=== PATIENT | male | born 1980 | race Caucasian/White ===

== ENCOUNTER 2017-06-21 16:23 | Emergency (ER) | payer OTHER ==
[~2017-06-21] VITALS: Ht 172.7 cm; Wt 70.0 kg
--- NOTE | 2017-06-21 16:58 | PD ---
HPI Chief Complaint: lora act Time Seen by Provider: 16:48 Travel History International Travel<30 days: No Contact w/Intl Traveler<30days: No Traveled to known affect area: No History of Present Illness HPI 37-year-old male is brought to the emergency department under a Nguyen act for evaluation. Patient reports he has been doing her when today. Per the report, the patient was lying down in the mulch, eating it. Patient states he does not recall this. Denies this was any attempt to harm himself. Uses here when daily. Occasionally crack cocaine. She denies chest pain or tightness. No difficulty breathing. Patient denies any other acute medical needs at this time. [facility] Past Medical History Medical History: Denies Significant Hx Social History Alcohol Use: Yes Tobacco Use: Yes Substance Use: Yes Allergies-Medications (Allergen,Severity, Reaction): Coded Allergies: No Known Allergies (Unverified , 06/21/17) Reported Meds & Prescriptions Reported Meds & Active Scripts Active No Active Prescriptions or Reported Medications Review of Systems ROS Limitations: Intoxication Except as stated in HPI: all other systems reviewed are Neg Physical Exam Exam Limitations: Intoxication Narrative GENERAL: Thin male patient, in no acute distress. Patient is lethargic, arousable to voice SKIN: Focused skin assessment warm/dry. Full scabbed lesions on the upper extremities. EYES: Pupils equal and round. No scleral icterus. No injection or drainage. ENT: No nasal bleeding or discharge. Mucous membranes pink and moist. NECK: Trachea midline. No JVD. CARDIOVASCULAR: Tachycardic rate and rhythm. No murmur appreciated. RESPIRATORY: No accessory muscle use. Clear to auscultation. Breath sounds equal bilaterally. GASTROINTESTINAL: Abdomen soft, non-tender, nondistended. Hepatic and splenic margins not palpable. MUSCULOSKELETAL: No obvious deformities. No clubbing. No cyanosis. No edema. NEUROLOGICAL: Awake and alert. No obvious cranial nerve deficits. Motor grossly within normal limits. Normal speech. PSYCHIATRIC: Appropriate mood and affect; insight and judgment questionable Data Data Last Documented VS Vital Signs Date Time Temp Pulse Resp B/P (MAP) Pulse Ox O2 Delivery O2 Flow Rate FiO2 06/21/17 19:25 84 17 115/84 (94) 98 Room Air 06/21/17 17:43 2.00 06/21/17 17:12 98.6 Orders Orders Complete Blood Count With Diff (06/21/17 16:58) Basic Metabolic Panel (Bmp) (06/21/17 16:58) Oximetry (06/21/17 16:58) Iv Access Insert/Monitor (06/21/17 16:58) Ecg Monitoring (06/21/17 16:58) Drug Screen, Random Urine (06/21/17 16:58) Alcohol (Ethanol) (06/21/17 16:58) Sodium Chlor 0.9% 1000 Ml Inj (Ns 1000 M (06/21/17 17:00) Sodium Chlor 0.9% 1000 Ml Inj (Ns 1000 M (06/21/17 19:30) Cath For Specimen (06/21/17 19:27) Labs Laboratory Tests Test 06/21/17 17:40 White Blood Count 15.7 TH/MM3 Red Blood Count 5.29 MIL/MM3 Hemoglobin 15.5 GM/DL Hematocrit 45.5 % Mean Corpuscular Volume 86.0 FL Mean Corpuscular Hemoglobin 29.4 PG Mean Corpuscular Hemoglobin Concent 34.2 % Red Cell Distribution Width 13.8 % Platelet Count 290 TH/MM3 Mean Platelet Volume 6.2 FL Neutrophils (%) (Auto) 79.6 % Lymphocytes (%) (Auto) 11.8 % Monocytes (%) (Auto) 8.1 % Eosinophils (%) (Auto) 0.3 % Basophils (%) (Auto) 0.2 % Neutrophils # (Auto) 12.5 TH/MM3 Lymphocytes # (Auto) 1.9 TH/MM3 Monocytes # (Auto) 1.3 TH/MM3 Eosinophils # (Auto) 0.0 TH/MM3 Basophils # (Auto) 0.0 TH/MM3 CBC Comment AUTO DIFF Differential Comment AUTO DIFF CONFIRMED Platelet Estimate NORMAL Platelet Morphology Comment NORMAL Red Cell Morphology Comment NORMAL Blood Urea Nitrogen 15 MG/DL Creatinine 1.20 MG/DL Random Glucose 112 MG/DL Calcium Level 8.2 MG/DL Sodium Level 139 MEQ/L Potassium Level 4.3 MEQ/L Chloride Level 106 MEQ/L Carbon Dioxide Level 26.5 MEQ/L Anion Gap 7 MEQ/L Estimat Glomerular Filtration Rate 68 ML/MIN Ethyl Alcohol Level LESS THAN 3 MG/DL MDM Medical Decision Making Medical Screen Exam Complete: Yes Emergency Medical Condition: Yes Medical Record Reviewed: Yes Differential Diagnosis Opiate dependency versus opiate overdose versus polysubstance abuse versus mood disorder versus personality disorder Narrative Course 37-year-old male presents to emergency department for evaluation under a psych. Patient appears under the influence. He is lethargic but arousable to voice. He is tachycardic. EKG is reviewed to my attending physician with no acute abnormality identified. Laboratory Tests Test 06/21/17 17:40 White Blood Count 15.7 TH/MM3 Red Blood Count 5.29 MIL/MM3 Hemoglobin 15.5 GM/DL Hematocrit 45.5 % Mean Corpuscular Volume 86.0 FL Mean Corpuscular Hemoglobin 29.4 PG Mean Corpuscular Hemoglobin Concent 34.2 % Red Cell Distribution Width 13.8 % Platelet Count 290 TH/MM3 Mean Platelet Volume 6.2 FL Neutrophils (%) (Auto) 79.6 % Lymphocytes (%) (Auto) 11.8 % Monocytes (%) (Auto) 8.1 % Eosinophils (%) (Auto) 0.3 % Basophils (%) (Auto) 0.2 % Neutrophils # (Auto) 12.5 TH/MM3 Lymphocytes # (Auto) 1.9 TH/MM3 Monocytes # (Auto) 1.3 TH/MM3 Eosinophils # (Auto) 0.0 TH/MM3 Basophils # (Auto) 0.0 TH/MM3 CBC Comment AUTO DIFF Differential Comment AUTO DIFF CONFIRMED Platelet Estimate NORMAL Platelet Morphology Comment NORMAL Red Cell Morphology Comment NORMAL Blood Urea Nitrogen 15 MG/DL Creatinine 1.20 MG/DL Random Glucose 112 MG/DL Calcium Level 8.2 MG/DL Sodium Level 139 MEQ/L Potassium Level 4.3 MEQ/L Chloride Level 106 MEQ/L Carbon Dioxide Level 26.5 MEQ/L Anion Gap 7 MEQ/L Estimat Glomerular Filtration Rate 68 ML/MIN Ethyl Alcohol Level LESS THAN 3 MG/DL Patient's given IV normal saline fluid. He'll be observed and monitored for the next 4 hours at which time he'll be discharged home with a safe ride. Diagnosis Primary Impression: Opiate abuse, continuous Referrals: [facility] (Out patient) Primary Care Physician Patient Instructions: General Instructions, Narcotic Abuse (ED) Additional Instructions: It is important that you stop using heroin Utilize outpatient resources or inpatient rehabilitation to help with this Follow-up with primary care provider Return immediately to the emergency department with any acute worsening of symptoms Med/Other Pt SpecificInfo: No Change to Meds Scripts No Active Prescriptions or Reported Meds Disposition: 01 DISCHARGE HOME Condition: Stable Tasneem Griffith Jun 21, 2017 16:58
[2017-06-21] MEDS ORDERED: SODIUM CHLOR 0.9% 1000 ML INJ 1,000 ML IV ONE ×2 (17:00→19:30)
[2017-06-21 17:12] VITALS: BP 122/82; PULSE 104; RESP 18; TEMP 98.6; O2SAT 98
[2017-06-21 17:43] VITALS: RESP 16; O2SAT 99
[2017-06-21 17:57] LABS: AUTOMATED NEUTROPHIL # 12.5 TH/MM3 (1.8-7.7); BASOPHIL % 0.2 % (0.0-2.0); EOSINOPHIL % 0.3 % (0.0-4.0); HEMATOCRIT 45.5 % (39.0-51.0); LYMPH % 11.8 % (9.0-44.0); LYMPHOCYTE # 1.9 TH/MM3 (1.0-4.8); MEAN CORPUSCULAR HEMOGLOBIN 29.4 PG (27.0-34.0); MEAN CORPUSCULAR HGB CONC 34.2 % (32.0-36.0); MONO % 8.1 % (0.0-8.0); NEUT % 79.6 % (16.0-70.0); PLATELET COUNT 290 TH/MM3 (150-450); RED BLOOD COUNT 5.29 MIL/MM3 (4.50-5.90); RED CELL DISTRIBUTION WIDTH 13.8 % (11.6-17.2); WHITE BLOOD COUNT 15.7 TH/MM3 (4.0-11.0)
[2017-06-21 17:59] LABS: HEMO FLAGS AUTO DIFF
[2017-06-21 18:07] LABS: ANION GAP 7 MEQ/L (5-15); BICARBONATE 26.5 MEQ/L (21.0-32.0); BLOOD UREA NITROGEN 15 MG/DL (7-18); CHLORIDE 106 MEQ/L (98-107); GLOMERULAR FILTRATION RATE 68 ML/MIN (>89); POTASSIUM 4.3 MEQ/L (3.5-5.1); SODIUM (NA) 139 MEQ/L (136-145)
[2017-06-21 18:19] LABS: ALCOHOL LESS THAN 3 MG/DL (0-5)
[2017-06-21 18:45] LABS: PLATELET ESTIMATE SMEAR NORMAL (NORMAL); PLATELET MORPHOLOGY NORMAL (NORMAL); SCAN/DIFF AUTO DIFF CONFIRMED
[2017-06-21 19:25] VITALS: BP 115/84; PULSE 84; RESP 17; O2SAT 98
== END 2017-06-21 21:05 | disposition home or self-care (01) ==
LOC: NEPD 16:23
DX: F11.10 Opioid abuse, uncomplicated (principal)
CPT/HCPCS: 80048; 80307; 85025; 96360; 99283; J7030; P9612

== ENCOUNTER 2017-12-09 16:16 | Inpatient (IN) | payer SELFPAY ==
[~2017-12-09] VITALS: Ht 175.3 cm; Wt 59.3 kg
[2017-12-09 16:24] VITALS: BP 125/76; PULSE 120; RESP 16; TEMP 97.9; O2SAT 97
[2017-12-09] MEDS ORDERED: SODIUM CHLOR 0.9% 1000 ML INJ 1,000 ML IV ONE ×2 (16:36→17:06)
[2017-12-09] MEDS ORDERED: VIVI380I IM (16:58)
--- NOTE | 2017-12-09 16:58 | PD ---
HPI Chief Complaint: Abnormal Results Time Seen by Provider: 16:27 Travel History International Travel<30 days: No Contact w/Intl Traveler<30days: No Traveled to known affect area: No History of Present Illness HPI This is a 37-year-old male who presents for elevated glucose. He states that in November, he injured his right shoulder. He saw an orthopedic surgeon who did a cortisone injection into his right shoulder and started him on prednisone. He states that he started prednisone November 19. He stopped it about 8 days ago. He states that his shoulder feels better now. He has had polyuria polydipsia, general fatigue and blurred vision for the last few weeks. He saw an general machine operator who evaluated him and referred him for blood work. The blood work showed markedly elevated glucose so he was referred to the emergency department. Patient denies a history of diabetes. He denies fever, chills, vomiting, diarrhea. No chest pain or shortness of breath. He does note an area of skin infection on the anterior chest. No drainage from it. He states that he last injected IV drugs 45 days ago. He had been in a rehab center until 4 days ago. Symptoms are moderate in severity. Onset gradual. Hyperglycemia likely aggravated by prednisone. PFSH Past Medical History Narrative Medical Hepatitis C, history of right AC separation Past Surgical History Surgical History: No Previous Surgery Social History Alcohol Use: No Tobacco Use: Yes Substance Use: No ("Clean" for 45 days, prior IVDA) Allergies-Medications (Allergen,Severity, Reaction): Coded Allergies: No Known Allergies (Unverified Allergy, Unknown, 12/09/17) Reported Meds & Prescriptions Reported Meds & Active Scripts Active Reported Vivitrol Inj (Naltrexone Inj) 380 Mg Inj 380 Mg IM Q28D Review of Systems Except as stated in HPI: all other systems reviewed are Neg Physical Exam Narrative GENERAL: Alert, well nourished, well appearing patient resting on the bed in no acute distress. Vital Signs reviewed SKIN: Focused skin assessment warm/dry. No Osler nodes. No Janeway lesions. There is an area of erythema and induration on the upper mid chest wall. No drainage. HEAD: Atraumatic. Normocephalic. EYES: Pupils equal and round. No scleral icterus. No injection or drainage. ENT: No nasal bleeding or discharge. Mucous membranes pink and moist. NECK: Trachea midline. No JVD. Spontaneous, painless full range of motion with no meningismus CARDIOVASCULAR: Regular rate and rhythm. No murmur appreciated. Extremities warm and well perfused with bounding peripheral pulses RESPIRATORY: No accessory muscle use. Clear to auscultation. Breath sounds equal bilaterally. Breathing easily and speaking in full sentences GASTROINTESTINAL: Abdomen soft, non-tender, nondistended. Normal bowel sounds. No rigid, rebound, guarding MUSCULOSKELETAL: No obvious deformities. No clubbing. No cyanosis. No edema. Compartments are soft. Painless full range of motion of right shoulder, elbow, wrist. No overlying erythema or increased warmth on right shoulder. NEUROLOGICAL: Awake and alert. No obvious cranial nerve deficits. Motor grossly within normal limits. Normal speech. Sensation intact. Normal gait PSYCHIATRIC: Appropriate mood and affect; insight and judgment normal. Data Data Last Documented VS Vital Signs Date Time Temp Pulse Resp B/P (MAP) Pulse Ox O2 Delivery O2 Flow Rate FiO2 12/09/17 17:17 97 Room Air 12/09/17 16:24 97.9 120 16 125/76 (92) Orders Orders Sepsis Workup Initiated (12/09/17 ) Complete Blood Count With Diff (12/09/17 16:36) Comprehensive Metabolic Panel (12/09/17 16:36) Lactic Acid Sepsis Protocol (12/09/17 16:36) Magnesium (Mg) (12/09/17 16:36) Ckmb (Isoenzyme) Profile (12/09/17 16:36) Troponin I (12/09/17 16:36) Urinalysis - C+S If Indicated (12/09/17 16:36) Blood Culture (12/09/17 16:36) Chest, Pa & Lat (12/09/17 16:36) Ecg Monitoring (12/09/17 16:36) Iv Access Insert/Monitor (12/09/17 16:36) Oximetry (12/09/17 16:36) Beta Hydroxybutyrate (Acetone) (12/09/17 16:36) Blood Gas Venous (Vbg) (12/09/17 16:36) Sodium Chlor 0.9% 1000 Ml Inj (Ns 1000 M (12/09/17 16:36) Sodium Chlor 0.9% 1000 Ml Inj (Ns 1000 M (12/09/17 17:06) CKMB (12/09/17 17:09) CKMB% (12/09/17 17:09) Ceftriaxone Inj (Rocephin Inj) (12/09/17 18:30) Vancomycin Inj (Vancomycin Inj) (12/09/17 18:30) Notify Dr: Other (12/09/17 18:36) Bedside Glucose .As Directed (12/09/17 18:36) Hypoglycemia Cc <80 Mg/Dl (12/09/17 18:36) Insulin Regular (Iv Infusion) (Novolin R (12/09/17 19:00) Dextrose 50% In Roselyn (Vial) Inj (D50w (Vi (12/09/17 18:45) Misc Information (12/09/17 18:45) Admit To Inpatient (12/09/17 ) Spinning Mule Tender / Telemetry CEDRIC.Q8H (12/09/17 18:50) ^ Insert Iv (12/09/17 18:50) ^ Teach Patient (12/09/17 18:50) Diet Npo (12/09/17 Dinner) Bedside Glucose CEDRIC.Q1H (12/09/17 18:50) Sodium Chlor 0.9% 1000 Ml Inj (Ns 1000 M (12/09/17 18:50) Dext 5%-Nacl 0.9% 1000 Ml Inj (D5w-Ns 10 (12/09/17 18:50) Insulin Human Regular Inj (Novolin R Inj (12/09/17 19:00) Insulin Regular (Iv Infusion) (Novolin R (12/09/17 19:00) Potassium Chlor 40 Meq Premix (Kcl 40 Me (12/09/17 19:00) Potassium Chlor 40 Meq Premix (Kcl 40 Me (12/09/17 19:00) Potassium Chlor 20 Meq Premix (Kcl 20 Me (12/09/17 19:00) Potassium Chlor 20 Meq Premix (Kcl 20 Me (12/09/17 19:00) Potassium Chlor 20 Meq Premix (Kcl 20 Me (12/09/17 19:00) Potassium Chlor 20 Meq Premix (Kcl 20 Me (12/09/17 19:00) Potassium Chlor 20 Meq Premix (Kcl 20 Me (12/09/17 19:00) Potassium Chlor 20 Meq Premix (Kcl 20 Me (12/09/17 19:00) Sodium Bicarbonate 8.4% Inj (Sodium Bica (12/09/17 19:00) Sodium Bicarbonate 8.4% Inj (Sodium Bica (12/09/17 19:00) Sodium Phosphate Inj (Sodium Phosphate I (12/09/17 19:00) Basic Metabolic Panel (Bmp) (12/09/17 23:50) Basic Metabolic Panel (Bmp) (12/10/17 05:50) Basic Metabolic Panel (Bmp) (12/10/17 11:50) Basic Metabolic Panel (Bmp) (12/10/17 17:50) Magnesium (Mg) (12/09/17 23:50) Magnesium (Mg) (12/10/17 05:50) Magnesium (Mg) (12/10/17 11:50) Magnesium (Mg) (12/10/17 17:50) Phosphorus (Po4) (12/09/17 23:50) Phosphorus (Po4) (12/10/17 05:50) Phosphorus (Po4) (12/10/17 11:50) Phosphorus (Po4) (12/10/17 17:50) Beta Hydroxybutyrate (Acetone) (12/10/17 05:50) Beta Hydroxybutyrate (Acetone) (12/10/17 17:50) ^ Initiate Protocol (12/09/17 18:50) Instruction (12/09/17 18:50) [facility] [place] [facility] (12/09/17 19:00) Chlorhexidine 2% Cloth (Chlorhexidine 2% (12/10/17 04:00) Chlorhexidine 2% Cloth (Chlorhexidine 2% (12/09/17 19:00) Mrsa Pcr Surveillance (12/09/17 18:50) Admit Order (Ed Use Only) (12/09/17 19:00) Labs Laboratory Tests Test 12/09/17 17:05 12/09/17 17:09 Blood Gas Puncture Site RAC Blood Gas Patient Temperature 98.6 Venous Blood pH 7.38 Venous Blood Partial Pressure CO2 44 mmHg Venous Blood Partial Pressure O2 46 mmHg Venous Blood HCO3 25 mmol/L Venous Blood Oxygen Saturation 77 % Venous Blood Oxygen Content 16.3 Vol % Venous Blood Base Excess 0.8 mmol/L Oxygen Delivery Device RA Blood Gas Inspired Oxygen 21 % White Blood Count 11.6 TH/MM3 Red Blood Count 5.41 MIL/MM3 Hemoglobin 15.1 GM/DL Hematocrit 45.1 % Mean Corpuscular Volume 83.3 FL Mean Corpuscular Hemoglobin 27.8 PG Mean Corpuscular Hemoglobin Concent 33.4 % Red Cell Distribution Width 12.2 % Platelet Count 411 TH/MM3 Mean Platelet Volume 6.9 FL Neutrophils (%) (Auto) 71.1 % Lymphocytes (%) (Auto) 22.7 % Monocytes (%) (Auto) 4.8 % Eosinophils (%) (Auto) 0.7 % Basophils (%) (Auto) 0.7 % Neutrophils # (Auto) 8.2 TH/MM3 Lymphocytes # (Auto) 2.6 TH/MM3 Monocytes # (Auto) 0.6 TH/MM3 Eosinophils # (Auto) 0.1 TH/MM3 Basophils # (Auto) 0.1 TH/MM3 CBC Comment DIFF FINAL Differential Comment Blood Urea Nitrogen 16 MG/DL Creatinine 1.10 MG/DL Random Glucose 556 MG/DL Total Protein 9.2 GM/DL Albumin 3.7 GM/DL Calcium Level 9.2 MG/DL Magnesium Level 2.1 MG/DL Alkaline Phosphatase 198 U/L Aspartate Amino Transf (AST/SGOT) 31 U/L Alanine Aminotransferase (ALT/SGPT) 50 U/L Total Bilirubin 0.4 MG/DL Sodium Level 130 MEQ/L Potassium Level 4.5 MEQ/L Chloride Level 94 MEQ/L Carbon Dioxide Level 21.5 MEQ/L Anion Gap 15 MEQ/L Estimat Glomerular Filtration Rate 75 ML/MIN Lactic Acid Level 1.4 mmol/L Total Creatine Kinase 163 U/L Creatine Kinase MB 1.8 NG/ML Troponin I LESS THAN 0.02 NG/ML B-Hydroxybutyrate 3.52 MMOL/L MDM Medical Decision Making Medical Screen Exam Complete: Yes Emergency Medical Condition: Yes Medical Record Reviewed: Yes Interpretation(s) Last 24 hours Impressions Chest X-Ray 12/09/17 1636 Signed Impressions: Service Date/Time: Saturday, December 09, 2017 16:47 - CONCLUSION: Normal examination. Edu Pacheco MD Laboratory Tests Test 12/09/17 17:05 12/09/17 17:09 Blood Gas Puncture Site RAC Blood Gas Patient Temperature 98.6 Venous Blood pH 7.38 Venous Blood Partial Pressure CO2 44 mmHg Venous Blood Partial Pressure O2 46 mmHg Venous Blood HCO3 25 mmol/L Venous Blood Oxygen Saturation 77 % Venous Blood Oxygen Content 16.3 Vol % Venous Blood Base Excess 0.8 mmol/L Oxygen Delivery Device RA Blood Gas Inspired Oxygen 21 % White Blood Count 11.6 TH/MM3 Red Blood Count 5.41 MIL/MM3 Hemoglobin 15.1 GM/DL Hematocrit 45.1 % Mean Corpuscular Volume 83.3 FL Mean Corpuscular Hemoglobin 27.8 PG Mean Corpuscular Hemoglobin Concent 33.4 % Red Cell Distribution Width 12.2 % Platelet Count 411 TH/MM3 Mean Platelet Volume 6.9 FL Neutrophils (%) (Auto) 71.1 % Lymphocytes (%) (Auto) 22.7 % Monocytes (%) (Auto) 4.8 % Eosinophils (%) (Auto) 0.7 % Basophils (%) (Auto) 0.7 % Neutrophils # (Auto) 8.2 TH/MM3 Lymphocytes # (Auto) 2.6 TH/MM3 Monocytes # (Auto) 0.6 TH/MM3 Eosinophils # (Auto) 0.1 TH/MM3 Basophils # (Auto) 0.1 TH/MM3 CBC Comment DIFF FINAL Differential Comment Blood Urea Nitrogen 16 MG/DL Creatinine 1.10 MG/DL Random Glucose 556 MG/DL Total Protein 9.2 GM/DL Albumin 3.7 GM/DL Calcium Level 9.2 MG/DL Magnesium Level 2.1 MG/DL Alkaline Phosphatase 198 U/L Aspartate Amino Transf (AST/SGOT) 31 U/L Alanine Aminotransferase (ALT/SGPT) 50 U/L Total Bilirubin 0.4 MG/DL Sodium Level 130 MEQ/L Potassium Level 4.5 MEQ/L Chloride Level 94 MEQ/L Carbon Dioxide Level 21.5 MEQ/L Anion Gap 15 MEQ/L Estimat Glomerular Filtration Rate 75 ML/MIN Lactic Acid Level 1.4 mmol/L Total Creatine Kinase 163 U/L Creatine Kinase MB 1.8 NG/ML Troponin I LESS THAN 0.02 NG/ML B-Hydroxybutyrate 3.52 MMOL/L Differential Diagnosis Cellulitis, hyperglycemia, dehydration, HHS, DKA, new onset diabetes, medication reaction, sepsis, endocarditis Narrative Course IV access was established. Labs, imaging were performed. He was given broad- spectrum IV antibiotics for the cellulitis. Patient was given 2 L normal saline bolus. Initially, plan was for insulin drip. After the 2 L normal saline IV fluid bolus, the patient's glucose came down to the low 300s therefore insulin drip was canceled and patient was given a bolus of regular insulin. I updated the admitting physician, Dr. English. She requested that I canceled the DKA orders. Patient will no longer need ICU level of care. He remains awake, alert, appropriate. He is drinking fluids without difficulty. Diagnosis Primary Impression: Hyperglycemia Additional Impression: Dehydration Admitting Information Admitting Physician Requests: Admit Selam Pisano MD Dec 09, 2017 16:58
[2017-12-09 17:17] VITALS: O2SAT 97
--- NOTE | 2017-12-09 17:20 | RADRPT ---
EXAM DATE/TIME: 12/09/2017 16:47 [facility] COMPARISON: No previous studies available for comparison. INDICATIONS : Short of breath. MEDICAL HISTORY : None. SURGICAL HISTORY : None. ENCOUNTER: Initial ACUITY: 1 day PAIN SCORE: 0/10 LOCATION: Bilateral chest FINDINGS: PA and lateral views of the chest demonstrate the lungs to be symmetrically aerated without evidence of mass, infiltrate or effusion. The cardiomediastinal contours are unremarkable. Osseous structure s are intact. CONCLUSION: Normal examination. Edu Pacheco MD on December 09, 2017 at 17:16 Board Certified Radiologist. This report was verified electronically.
[2017-12-09 17:30] LABS: AUTOMATED NEUTROPHIL # 8.2 TH/MM3 (1.8-7.7); BASOPHIL # 0.1 TH/MM3 (0-0.2); BASOPHIL % 0.7 % (0.0-2.0); EOSINOPHIL # 0.1 TH/MM3 (0-0.4); EOSINOPHIL % 0.7 % (0.0-4.0); HEMATOCRIT 45.1 % (39.0-51.0); HEMOGLOBIN 15.1 GM/DL (13.0-17.0); LYMPH % 22.7 % (9.0-44.0); LYMPHOCYTE # 2.6 TH/MM3 (1.0-4.8); MEAN CELL VOLUME 83.3 FL (80.0-100.0); MEAN CORPUSCULAR HEMOGLOBIN 27.8 PG (27.0-34.0); MEAN CORPUSCULAR HGB CONC 33.4 % (32.0-36.0); MEAN PLATELET VOLUME 6.9 FL (7.0-11.0); MONO % 4.8 % (0.0-8.0); MONOCYTE # 0.6 TH/MM3 (0-0.9); NEUT % 71.1 % (16.0-70.0); PLATELET COUNT 411 TH/MM3 (150-450); RED BLOOD COUNT 5.41 MIL/MM3 (4.50-5.90); RED CELL DISTRIBUTION WIDTH 12.2 % (11.6-17.2); WHITE BLOOD COUNT 11.6 TH/MM3 (4.0-11.0)
[2017-12-09 17:41] LABS: CHLORIDE 94 MEQ/L (98-107); SODIUM (NA) 130 MEQ/L (136-145)
[2017-12-09 17:44] LABS: CALCIUM 9.2 MG/DL (8.5-10.1)
[2017-12-09 17:45] LABS: ALBUMIN 3.7 GM/DL (3.4-5.0); BICARBONATE 21.5 MEQ/L (21.0-32.0); BLOOD UREA NITROGEN 16 MG/DL (7-18); MAGNESIUM 2.1 MG/DL (1.5-2.5)
[2017-12-09 17:48] LABS: ALT (GPT) 50 U/L (12-78); AST (GOT) 31 U/L (15-37); GLOMERULAR FILTRATION RATE 75 ML/MIN (>89)
[2017-12-09 17:49] LABS: TOTAL BILIRUBIN ADULT 0.4 MG/DL (0.2-1.0); TOTAL PROTEIN 9.2 GM/DL (6.4-8.2)
[2017-12-09 17:53] LABS: ALKALINE PHOSPHATASE 198 U/L (45-117)
[2017-12-09 17:58] LABS: GLUCOSE,RANDOM 556 MG/DL (74-106)
[2017-12-09] MEDS ORDERED: cefTRIAXone INJ 1,000 MG in SODIUM CHLORIDE 0.9% INJ 100 ML IV ONE (18:30)
[2017-12-09] MEDS ORDERED: VANCOMYCIN INJ 1,000 MG in SODIUM CHLOR 0.9% 250 ML INJ 250 ML IV ONE (18:30)
[2017-12-09] MEDS ORDERED: MISC INFORMATION OTHER ONE (18:45)
[2017-12-09] MEDS ORDERED: DEXTROSE 50% IN WATER 50 ML VIAL(D50) IV PUSH PRN ×2 (18:45→20:15)
[2017-12-09 18:47] LABS: TROPONIN I LESS THAN 0.02 NG/ML (0.02-0.05)
[2017-12-09] MEDS ORDERED: DEXT 5%-NACL 0.9% 1000 ML INJ 1,000 ML IV SCH (18:50)
[2017-12-09] MEDS ORDERED: SODIUM CHLOR 0.9% 1000 ML INJ 1,000 ML IV SCH (18:50)
[2017-12-09] MEDS ORDERED: SODIUM BICARBONATE 8.4% SOLN 50 MEQ/50 ML VIAL IV PUSH PRN ×2 (19:00)
[2017-12-09] MEDS ORDERED: SODIUM PHOSPHATE INJ 15 MMOL in SODIUM CHLORIDE 0.9% INJ 100 ML IV PRN (19:00)
[2017-12-09] MEDS ORDERED: INSULIN HUMAN REGULAR 1,000 UNITS/10 ML VIAL IV PUSH ONE (19:00)
[2017-12-09] MEDS ORDERED: MISCELLANEOUS NURSING INFORMATION XX SCH (19:00)
[2017-12-09] MEDS ORDERED: INSULIN REGULAR (IV INFUSION) 100 UNITS in SODIUM CHLORIDE 0.9% INJ 99 ML IV PRN ×4 (19:00)
[2017-12-09] MEDS ORDERED: POTASSIUM CHLOR 20 MEQ PREMIX 100 ML IV PRN ×6 (19:00)
[2017-12-09] MEDS ORDERED: CHLORHEXIDINE GLUCONATE 2 % 1 PACK (2 CLOTHS) TOP PRN (19:00)
[2017-12-09] MEDS ORDERED: POTASSIUM CHLOR 40 MEQ PREMIX 100 ML IV PRN ×2 (19:00)
[2017-12-09 19:26] VITALS: BP 128/73; PULSE 88; RESP 20; O2SAT 96
[2017-12-09] MEDS ORDERED: INSULIN HUMAN REGULAR 1,000 UNITS/10 ML VIAL SQ ONE (19:45)
[2017-12-09] MEDS ORDERED: LORazepam 2 MG/ML VIAL IV PUSH PRN (20:15)
[2017-12-09] MEDS ORDERED: GLUCAGON 1 MG/ML VIAL OTHER PRN (20:15)
[2017-12-09 20:31] VITALS: BP 133/83; PULSE 94; RESP 20; O2SAT 96
[2017-12-09 20:40] LABS: BILIRUBIN, URINE NEG (NEG); BLOOD, URINE NEG (NEG); GLUCOSE,URINE 1000 OR GREATER mg/dL (NEG); KETONE, URINE 80 OR GREATER mg/dL (NEG); NITRITE,URINE NEG (NEG); URINE COLOR YELLOW (YELLW/STRAW); URINE LEUKOCYTE ESTERASE NEG (NEG)
[2017-12-09 20:56] LABS: SQUAMOUS EPITHELIAL CELL URINE 0-5 /hpf (0-5); WBC, URINE 0-2 /hpf (0-5)
[2017-12-09] MEDS ORDERED: Vancomycin Consult Pharmacy 1 EA OTHER SCH (21:00)
[2017-12-09 21:40] VITALS: BP 127/84; PULSE 80; RESP 16; O2SAT 96
[2017-12-09] MEDS: VANCOMYCIN INJ 1,250 MG in SODIUM CHLOR 0.9% 250 ML INJ 250 ML IV SCH (22:27)
[2017-12-09] MEDS: INSULIN ASPART SUPPLEMENTAL SCALE SQ SCH (22:29)
[2017-12-10 00:07] VITALS: BP 128/67; PULSE 84; RESP 18; TEMP 98.1; O2SAT 98
[2017-12-10] MEDS ORDERED: CHLORHEXIDINE GLUCONATE 2 % 1 PACK (2 CLOTHS) TOP SCH (04:00)
[2017-12-10 04:02] VITALS: BP 120/68; PULSE 80; RESP 16; TEMP 97.9; O2SAT 96
[2017-12-10 07:27] LABS: BASOPHIL # 0.1 TH/MM3 (0-0.2); BASOPHIL % 0.7 % (0.0-2.0); EOSINOPHIL # 0.2 TH/MM3 (0-0.4); EOSINOPHIL % 2.3 % (0.0-4.0); HEMATOCRIT 39.3 % (39.0-51.0); HEMOGLOBIN 13.5 GM/DL (13.0-17.0); LYMPH % 32.7 % (9.0-44.0); LYMPHOCYTE # 2.8 TH/MM3 (1.0-4.8); MEAN CELL VOLUME 83.9 FL (80.0-100.0); MEAN CORPUSCULAR HEMOGLOBIN 28.8 PG (27.0-34.0); MEAN CORPUSCULAR HGB CONC 34.3 % (32.0-36.0); MONO % 5.7 % (0.0-8.0); MONOCYTE # 0.5 TH/MM3 (0-0.9); NEUT % 58.6 % (16.0-70.0); PLATELET COUNT 346 TH/MM3 (150-450); RED BLOOD COUNT 4.68 MIL/MM3 (4.50-5.90); RED CELL DISTRIBUTION WIDTH 13.1 % (11.6-17.2); WHITE BLOOD COUNT 8.6 TH/MM3 (4.0-11.0)
[2017-12-10 07:57] LABS: MAGNESIUM 1.8 MG/DL (1.5-2.5)
[2017-12-10 08:00] VITALS: BP 134/75; PULSE 90; RESP 16; TEMP 97.1; O2SAT 96
[2017-12-10 08:01] LABS: PHOSPHORUS 3.3 MG/DL (2.5-4.9)
[2017-12-10 08:06] LABS: ALBUMIN 2.8 GM/DL (3.4-5.0); ALT (GPT) 36 U/L (12-78); AST (GOT) 20 U/L (15-37); BLOOD UREA NITROGEN 12 MG/DL (7-18); CALCIUM 7.8 MG/DL (8.5-10.1); CHLORIDE 103 MEQ/L (98-107); CREATININE 0.59 MG/DL (0.60-1.30); GLOMERULAR FILTRATION RATE 154 ML/MIN (>89); GLUCOSE,RANDOM 222 MG/DL (74-106); SODIUM (NA) 137 MEQ/L (136-145); TOTAL BILIRUBIN ADULT 0.3 MG/DL (0.2-1.0)
[2017-12-10 08:11] LABS: ALKALINE PHOSPHATASE 109 U/L (45-117)
[2017-12-10] MEDS: INSULIN ASPART SUPPLEMENTAL SCALE SQ SCH ×4 (09:00→23:27)
[2017-12-10] MEDS: CEFEPIME INJ 1,000 MG in SODIUM CHLORIDE 0.9% INJ 100 ML IV SCH ×2 (09:02→23:16)
--- NOTE | 2017-12-10 11:45 | HHI.HP ---
HPI Service [facility] Primary Care Physician No Primary Care Physician Admission Diagnosis New Onset Hyperglycemia, Cellulitis Diagnoses: (1) New onset type 1 diabetes mellitus, uncontrolled Diagnosis: Principal (2) IV drug user Diagnosis: Principal (3) Right shoulder pain Diagnosis: Principal Chief Complaint: Patient told to come here by urgent care center Travel History International Travel<30 Days: No Contact w/Intl Traveler <30 Da: No Traveled to Known Affected Are: No History of Present Illness 37 year-old male who is an IV drug user who is being evaluated for right shoulder pain in outpatient setting presented to the emergency department at the request of local urgent care center. Patient states that his symptoms started over a month ago where he went to an orthopedic on November 17 in which she had an evaluation of right shoulder. Patient states that he was evaluated and was given a cortisone injection. Since the cortisone injection he had some blurred vision. Subsequently he was referred to an complaint clerk to evaluated him for his blurred vision. Laboratory studies were requested and he was found to have hyperglycemia at that time. He was referred to urgent care center who subsequently notified him to come to the hospital for evaluation due to severe hyperglycemia. Patient indicates that he denies any history of diabetes, no family history, he is rather thin individual, states that he does not eat a bunch sugar. Patient is more concerned about his right shoulder. He states that he is an IV drug user where he does inject allotted which he was doing for the last 50-60 days. He feels that he may have an infection in his shoulder and clavicle from his habit. He specifically requests that this get evaluated while he is here in the hospital. I discussed with the patient his diabetes, counseled him extensively on diabetes, management. Review of Systems Musculoskeletal: COMPLAINS OF: Joint pain (right shoulder) Except as stated in HPI: all other systems reviewed are Neg Past Family Social History Past Medical History Right shoulder pain IV drug user Past Surgical History Denies any previous surgeries Reported Medications Reported Meds & Active Scripts Active Reported Vivitrol Inj (Naltrexone Inj) 380 Mg Inj 380 Mg IM Q28D Allergies: Coded Allergies: No Known Allergies (Unverified Allergy, Unknown, 12/09/17) Family History Patient states that his mother has heart disease, carotid artery disease. Denies any family history of diabetes Social History Patient states that he smokes approximate 2 cigarettes a day since he was 18 years old. Denies any alcohol use. Patient admits to IV drug use with Dilaudid /heroin Physical Exam Vital Signs Vital Signs Date Time Temp Pulse Resp B/P (MAP) Pulse Ox O2 Delivery O2 Flow Rate FiO2 12/10/17 08:00 97.1 90 16 134/75 (94) 96 12/10/17 04:02 97.9 80 16 120/68 (85) 96 12/10/17 00:07 98.1 84 18 128/67 (87) 98 12/09/17 21:40 80 16 127/84 (98) 96 12/09/17 20:35 12/09/17 20:31 94 20 133/83 (100) 96 12/09/17 19:26 88 20 128/73 (91) 96 Room Air 12/09/17 17:17 97 Room Air 12/09/17 16:24 97.9 120 16 125/76 (92) 97 Physical Exam GENERAL: Well-developed, well-nourished, in no acute distress. alert and orientated HEENT: Head is normocephalic without any lesions or masses noted. Facial features are symmetric. Eyes: Pupils equal round reactive to light. Extraocular muscles are intact. Conjunctivae were clear. Oropharyngeal: Pharynx without any erythema edema. Tongue is midline without deviation. Buccal mucosa is moist without any masses or lesions NECK: Supple without any masses. Trachea midline no deviation. No JVD, no bruits are appreciated CARDIAC: Regular rhythm, regular rate. S1/S2 are heard. No murmurs gallops or rubs. LUNGS: Clear to auscultation bilaterally. No wheeze, rhonchi or rales. No use of accessory muscles on inspiration or expiration. ABDOMEN: Soft, nontender. Nondistended. Bowel sounds heard in all 4 quadrants. No organomegaly or masses. Negative rebound, negative guarding EXTREMITIES: No edema, pulses are equal bilaterally. No cyanosis or clubbing NEUROLOGY: Mood and affect appear appropriate. Cranial nerves II through XII grossly intact. Muscle strength 5/5 in upper and lower extremities bilaterally. Deep tendon reflexes are 2+ in upper and lower extremities bilaterally. RIGHT SHOULDER: Patient has good range of motion without any signs of tenderness. No restriction of range of motion. Patient has had some mild erythema noted over the sternoclavicular joint. No fluctuance was appreciated Laboratory Laboratory Tests Test 12/09/17 17:05 12/09/17 17:09 12/09/17 20:20 12/10/17 06:00 Blood Gas Puncture Site RAC Blood Gas Patient Temperature 98.6 Venous Blood pH 7.38 Venous Blood Partial Pressure CO2 44 Venous Blood Partial Pressure O2 46 Venous Blood HCO3 25 Venous Blood Oxygen Saturation 77 Venous Blood Oxygen Content 16.3 Venous Blood Base Excess 0.8 Oxygen Delivery Device RA Blood Gas Inspired Oxygen 21 White Blood Count 11.6 8.6 Red Blood Count 5.41 4.68 Hemoglobin 15.1 13.5 Hematocrit 45.1 39.3 Mean Corpuscular Volume 83.3 83.9 Mean Corpuscular Hemoglobin 27.8 28.8 Mean Corpuscular Hemoglobin Concent 33.4 34.3 Red Cell Distribution Width 12.2 13.1 Platelet Count 411 346 Mean Platelet Volume 6.9 7.0 Neutrophils (%) (Auto) 71.1 58.6 Lymphocytes (%) (Auto) 22.7 32.7 Monocytes (%) (Auto) 4.8 5.7 Eosinophils (%) (Auto) 0.7 2.3 Basophils (%) (Auto) 0.7 0.7 Neutrophils # (Auto) 8.2 5.0 Lymphocytes # (Auto) 2.6 2.8 Monocytes # (Auto) 0.6 0.5 Eosinophils # (Auto) 0.1 0.2 Basophils # (Auto) 0.1 0.1 CBC Comment DIFF FINAL DIFF FINAL Differential Comment Blood Urea Nitrogen 16 12 Creatinine 1.10 0.59 Random Glucose 556 222 Total Protein 9.2 7.0 Albumin 3.7 2.8 Calcium Level 9.2 7.8 Magnesium Level 2.1 1.8 Alkaline Phosphatase 198 109 Aspartate Amino Transf (AST/SGOT) 31 20 Alanine Aminotransferase (ALT/SGPT) 50 36 Total Bilirubin 0.4 0.3 Sodium Level 130 137 Potassium Level 4.5 3.4 Chloride Level 94 103 Carbon Dioxide Level 21.5 25.0 Anion Gap 15 9 Estimat Glomerular Filtration Rate 75 154 Lactic Acid Level 1.4 Total Creatine Kinase 163 Creatine Kinase MB 1.8 Troponin I LESS THAN 0.02 B-Hydroxybutyrate 3.52 2.25 Urine Color YELLOW Urine Turbidity CLEAR Urine pH 5.0 Urine Specific [place] 1.020 Urine Protein NEG Urine Glucose (UA) 1000 OR GREATER Urine Ketones 80 OR GREATER Urine Occult Blood NEG Urine Nitrite NEG Urine Bilirubin NEG Urine Urobilinogen 0.2 Urine Leukocyte Esterase NEG Urine WBC 0-2 Urine Squamous Epithelial Cells 0-5 Microscopic Urinalysis Comment CULT NOT INDICATED Phosphorus Level 3.3 Date/Time Source Procedure Growth Status 12/09/17 17:09 Blood Peripheral Aerobic Blood Culture - Preliminary NO GROWTH IN 1 DAY Resulted 12/09/17 17:09 Blood Peripheral Anaerobic Blood Culture - Preliminary NO GROWTH IN 1 DAY Resulted Result Diagram: 12/10/17 0600 12/10/17 0600 Imaging Last Impressions Chest X-Ray 12/09/17 1636 Signed Impressions: Service Date/Time: Saturday, December 09, 2017 16:47 - CONCLUSION: Normal examination. MD Yadiel Vazquez VTE Risk Assessment Caprini VTE Risk Assessment: No/Low Risk (score <= 1) Caprini Risk Assessment Model Point Value = 1 Point Value = 2 Point Value = 3 Point Value = 5 Age 41-60 Minor surgery BMI > 25 kg/m2 Swollen legs Varicose veins or History of unexplained or recurrent spontaneous Oral contraceptives or hormone replacement Sepsis (< 1 month) Serious lung disease, including pneumonia (< 1 month) Abnormal pulmonary function Acute myocardial infarction Congestive heart failure (< 1 month) History of inflammatory bowel disease Medical patient at bed rest Age 61-74 Arthroscopic surgery Major open surgery (> 45 min) Laparoscopic surgery (> 45 min) Malignancy Confined to bed (> 72 hours) Immobilizing plaster cast Central venous access Age >= 75 History of VTE Family history of VTE Factor V Leiden Prothrombin [id number] Lupus anticoagulant Anticardiolipin antibodies Elevated serum homocysteine Heparin-induced thrombocytopenia Other congenital or acquired thrombophilia Stroke (< 1 month) Elective arthroplasty Hip, pelvis, or leg fracture Acute spinal cord injury (< 1 month) Prophylaxis Regimen Total Risk Factor Score Risk Level Prophylaxis Regimen 0-1 Low Early ambulation 2 Moderate Order ONE of the following: *Sequential Compression Device (SCD) *Heparin 5000 units SQ BID 3-4 Higher Order ONE of the following medications: *Heparin 5000 units SQ TID *Enoxaparin/Lovenox 40 mg SQ daily (WT < 150 kg, CrCl > 30 mL/min) *Enoxaparin/Lovenox 30 mg SQ daily (WT < 150 kg, CrCl > 10-29 mL/min) *Enoxaparin/Lovenox 30 mg SQ BID (WT < 150 kg, CrCl > 30 mL/min) AND/OR *Sequential Compression Device (SCD) 5 or more Highest Order ONE of the following medications: *Heparin 5000 units SQ TID (Preferred with Epidurals) *Enoxaparin/Lovenox 40 mg SQ daily (WT < 150 kg, CrCl > 30 mL/min) *Enoxaparin/Lovenox 30 mg SQ daily (WT < 150 kg, CrCl > 10-29 mL/min) *Enoxaparin/Lovenox 30 mg SQ BID (WT < 150 kg, CrCl > 30 mL/min) AND *Sequential Compression Device (SCD) Assessment and Plan Assessment and Plan New onset diabetes, likely type I Awaiting hemoglobin A1c Accu-Cheks with sliding scale insulin Diabetic and dietary consultation Patient will require referral to outpatient chemical handler Pseudohyponatremia, resolved Secondary to hypoglycemia Hypokalemia Continue monitor and replete as needed Right shoulder pain with mild right sternoclavicular erythema, possible cellulitis Patient without any signs of sepsis, no leukocytosis, no tachycardia, afebrile Patient high risk for possible septic arthritis due to IV drug use We'll check sedimentation rate, C-reactive protein Obtain MRI with and without contrast of the right shoulder to include the sternoclavicular joint. Patient was started on empirical antibiotic with cefepime, vancomycin. DVT prevention Low risk, early ambulation Physician Certification 2 Midnight Certification Type: Admission for Inpatient Services Order for Inpatient Services The services are ordered in accordance with Medicare regulations or non- Medicare payer requirements, as applicable. In the case of services not specified as inpatient-only, they are appropriately provided as inpatient services in accordance with the 2-midnight benchmark. Estimated LOS (days): 2 days is the estimated time the patient will need to remain in the hospital, assuming treatment plan goals are met and no additional complications. Post-Hospital Plan: Not yet determined Prashant Wise Dec 10, 2017 11:45
[2017-12-10 12:00] VITALS: BP 148/71; PULSE 86; RESP 16; TEMP 98.3; O2SAT 95
[2017-12-10] MEDS: NS + KCL 20 MEQ INJ 1,000 ML IV SCH ×2 (12:59→23:50)
[2017-12-10 16:00] VITALS: BP 138/85; PULSE 82; RESP 16; TEMP 96.9; O2SAT 97
[2017-12-10] MEDS ORDERED: INSULIN DETEMIR 100 UNITS/ML VIAL SQ ONE (17:00)
[2017-12-10] MEDS: VANCOMYCIN INJ 1,250 MG in SODIUM CHLOR 0.9% 250 ML INJ 250 ML IV SCH (19:33)
[2017-12-10 20:00] VITALS: BP 144/86; PULSE 86; RESP 18; TEMP 98.6; O2SAT 97
[2017-12-10] MEDS ORDERED: INSULIN DETEMIR 100 UNITS/ML VIAL SQ SCH (21:00)
[2017-12-11] VITALS: BP 120/79; PULSE 84; RESP 18; TEMP 96.7; O2SAT 96
[2017-12-11 07:01] LABS: AUTOMATED NEUTROPHIL # 5.8 TH/MM3 (1.8-7.7); BASOPHIL # 0.1 TH/MM3 (0-0.2); EOSINOPHIL # 0.2 TH/MM3 (0-0.4); EOSINOPHIL % 1.9 % (0.0-4.0); HEMATOCRIT 41.3 % (39.0-51.0); HEMOGLOBIN 14.2 GM/DL (13.0-17.0); LYMPHOCYTE # 2.5 TH/MM3 (1.0-4.8); MEAN CELL VOLUME 83.6 FL (80.0-100.0); MEAN CORPUSCULAR HEMOGLOBIN 28.7 PG (27.0-34.0); MEAN CORPUSCULAR HGB CONC 34.3 % (32.0-36.0); MEAN PLATELET VOLUME 6.6 FL (7.0-11.0); MONO % 5.7 % (0.0-8.0); MONOCYTE # 0.5 TH/MM3 (0-0.9); NEUT % 64.4 % (16.0-70.0); PLATELET COUNT 364 TH/MM3 (150-450); RED BLOOD COUNT 4.94 MIL/MM3 (4.50-5.90); RED CELL DISTRIBUTION WIDTH 12.9 % (11.6-17.2); WHITE BLOOD COUNT 9.1 TH/MM3 (4.0-11.0)
[2017-12-11 07:21] LABS: CALCIUM 8.3 MG/DL (8.5-10.1)
[2017-12-11 07:22] LABS: BICARBONATE 26.4 MEQ/L (21.0-32.0); MAGNESIUM 1.8 MG/DL (1.5-2.5)
[2017-12-11 07:25] LABS: CREATININE 0.68 MG/DL (0.60-1.30)
[2017-12-11] MEDS: CEFEPIME INJ 1,000 MG in SODIUM CHLORIDE 0.9% INJ 100 ML IV SCH ×2 (07:42→20:35)
--- NOTE | 2017-12-11 07:44 | HHI.PR ---
Subjective Remarks Patient seen and examined today for follow-up on new onset diabetes, right shoulder pain. Patient doing quite well. States that he feels as if the swelling is going down in the area of the sternoclavicular area. Still awaiting MRI studies. Vital signs are stable, patient remains afebrile Objective Vitals Vital Signs Date Time Temp Pulse Resp B/P (MAP) Pulse Ox O2 Delivery O2 Flow Rate FiO2 12/11/17 00:00 96.7 84 18 120/79 (93) 96 12/10/17 20:00 98.6 86 18 144/86 (105) 97 12/10/17 16:00 96.9 82 16 138/85 (102) 97 12/10/17 12:00 98.3 86 16 148/71 (96) 95 12/10/17 08:00 97.1 90 16 134/75 (94) 96 I/O 12/10/17 12/10/17 12/10/17 12/11/17 12/11/17 12/11/17 07:00 15:00 23:00 07:00 15:00 23:00 Intake Total 852 ml 2 ml 2400 ml Balance 852 ml 2 ml 2400 ml Intake Oral 850 ml IV Total 2 ml 2 ml 2400 ml # Voids 2 3 Result Diagram: 12/11/17 0556 12/11/17 0556 Objective Remarks GENERAL: Well-developed, well-nourished, in no acute distress. alert and orientated HEENT: Head is normocephalic without any lesions or masses noted. Facial features are symmetric. Eyes: Extraocular muscles are intact. Conjunctivae were clear. NECK: Supple without any masses. Trachea midline no deviation. No JVD, CARDIAC: Regular rhythm, regular rate. S1/S2 are heard. No murmurs gallops or rubs. LUNGS: Clear to auscultation bilaterally. No wheeze, rhonchi or rales. No use of accessory muscles on inspiration or expiration. ABDOMEN: Soft, nontender. Nondistended. Bowel sounds heard in all 4 quadrants. No organomegaly or masses. Negative rebound, negative guarding EXTREMITIES: No edema, pulses are equal bilaterally. No cyanosis or clubbing NEUROLOGY: Mood and affect appear appropriate. Cranial nerves II through XII grossly intact. Muscle strength 5/5 in upper and lower extremities bilaterally. Deep tendon reflexes are 2+ in upper and lower extremities bilaterally. RIGHT SHOULDER: Patient has good range of motion without any signs of tenderness. No restriction of range of motion. Area noted at the sternoclavicular joint has now developed some fluctuance. Patient indicates that feels like the swelling has improved. Urinary Catheter: No Vascular Central Line Catheter: No A/P Assessment and Plan New onset diabetes, likely type I Hemoglobin A1c 13.0 Increase Lantus 10 units subcutaneously twice daily Accu-Cheks with sliding scale insulin Awaiting diabetic and dietary consultation Patient will require referral to outpatient captain cannery tender Right shoulder pain with mild right sternoclavicular erythema, possible cellulitis/abscess Patient without any signs of sepsis, no leukocytosis, no tachycardia, afebrile Patient high risk for possible septic arthritis/abscess due to IV drug use Sed rate 42 and C-reactive protein 2.99 Awaiting MRI with and without contrast of the right shoulder to include the sternoclavicular joint. Soft tissue ultrasound of the sternoclavicular area does not indicate any drainable fluid collection. Patient was started on empirical antibiotic with cefepime, vancomycin. Pseudohyponatremia, resolved Secondary to hyperglycemia Hypokalemia Continue monitor and replete as needed DVT prevention Low risk, early ambulation Discharge Planning Discharge planning likely 24-48 hours when diabetes under control, MRI completed , after diabetic education Prashant Wise Dec 11, 2017 07:44
[2017-12-11 08:00] VITALS: BP 141/83; PULSE 82; RESP 16; TEMP 96.9; O2SAT 96
--- NOTE | 2017-12-11 09:23 | RADRPT ---
EXAM DATE/TIME: 12/11/2017 08:57 [facility] COMPARISON: No previous studies available for comparison. INDICATIONS : Abscess. MEDICAL HISTORY : Hepatitis. Right shoulder pain. Tobacco use. SURGICAL HISTORY : None. ENCOUNTER: Initial ACUITY: 1 month PAIN SCORE: 7/10 LOCATION: Right chest AREA EVALUATED: Right anterior chest/ sternoclavicular area. FINDINGS: Firm area of induration right anterior chest wall with hyperemia without drainable fluid collection. This measures approximately 5 cm x 5 cm CONCLUSION: Apparent Inflammatory changes without drainable abscess. Stanislav Smith MD FACR on December 11, 2017 at 9:21 Board Certified Radiologist. This report was verified electronically.
[2017-12-11] MEDS: INSULIN DETEMIR 100 UNITS/ML VIAL SQ SCH ×2 (09:27→20:34)
[2017-12-11] MEDS: INSULIN ASPART SUPPLEMENTAL SCALE SQ SCH ×4 (09:28→20:33)
[2017-12-11] MEDS: VANCOMYCIN INJ 1,250 MG in SODIUM CHLOR 0.9% 250 ML INJ 250 ML IV SCH (09:31)
[2017-12-11] MEDS: NS + KCL 20 MEQ INJ 1,000 ML IV SCH ×2 (09:32→17:45)
[2017-12-11] MEDS ORDERED: GADODIAMIDE PF 287 MG/ML 10 ML VIAL (for RAD MRI) IVCONTRAST ONE (10:56)
[2017-12-11 12:00] VITALS: BP 129/69; PULSE 88; RESP 16; TEMP 97.3; O2SAT 95
--- NOTE | 2017-12-11 12:08 | RADRPT ---
EXAM DATE/TIME: 12/11/2017 10:24 [facility] COMPARISON: No previous studies available for comparison. INDICATIONS : Osteomyelitis. Evaluate right shoulder and right SC joint. CONTRAST: 10 cc Omniscan (gadodiamide) IV MEDICAL HISTORY : Diabetes mellitus type 2. IVDU. SURGICAL HISTORY : None. ENCOUNTER: Initial ACUITY: 1 day PAIN SCORE: 4/10 LOCATION: Right chest/shoulder TECHNIQUE: Multiplanar, multisequence MRI examination was performed with and without contrast. FINDINGS: There is fluid in the right sterno manubrial joint. This is associated with soft tissue induration a nd swelling. There is marrow edema in the proximal clavicle and sternum consistent with osteomyeliti s. The distal clavicle shows mild degenerative changes with minimal fluid at the AC joint solid. There i s no joint effusion. Marrow signal in the bones about the shoulder appear homogeneous. Axial obvious rotator cuff tear. Examination is optimized by the large field of view necessary to vi sualize the entire clavicle. CONCLUSION: MRI would be consistent with vasculitis sternomanubrial joint with edema in the marro w of both the sternum and proximal clavicle adjacent to the joint. Marked soft tissue induration is present as well. Stanislav Smith MD FACR on December 11, 2017 at 12:04 Board Certified Radiologist. This report was verified electronically.
[2017-12-11 16:00] VITALS: BP 126/83; PULSE 78; RESP 16; TEMP 97.5; O2SAT 96
[2017-12-11 20:00] VITALS: BP 149/90; PULSE 90; RESP 18; TEMP 97.6; O2SAT 99
[2017-12-12] VITALS: BP 136/69; PULSE 70; RESP 16; TEMP 97.6; O2SAT 99
[2017-12-12] MEDS: NS + KCL 20 MEQ INJ 1,000 ML IV SCH ×2 (01:25→14:21)
[2017-12-12] MEDS ORDERED: VANCOMYCIN TROUGH ONE (03:45)
[2017-12-12] MEDS: VANCOMYCIN INJ 1,250 MG in SODIUM CHLOR 0.9% 250 ML INJ 250 ML IV SCH ×2 (04:01→16:47)
[2017-12-12 06:50] LABS: CREATININE 0.67 MG/DL (0.60-1.30)
[2017-12-12 08:00] VITALS: BP 134/90; PULSE 84; RESP 14; TEMP 95.9; O2SAT 96
--- NOTE | 2017-12-12 08:04 | HHI.PR ---
Subjective Remarks Patient seen and examined today for follow-up on diabetes, shoulder pain. Patient is resting comfortably. Reviewed MRI results with the patient and discussed with him the possible osteomyelitis and need for treatment. Awaiting infectious disease for evaluation. Patient states that his shoulder is improved today he is able to move it without significant pain. Remains afebrile Objective Vitals Vital Signs Date Time Temp Pulse Resp B/P (MAP) Pulse Ox O2 Delivery O2 Flow Rate FiO2 12/12/17 00:00 97.6 70 16 136/69 (91) 99 12/11/17 20:00 97.6 90 18 149/90 (109) 99 12/11/17 16:00 97.5 78 16 126/83 (97) 96 12/11/17 12:00 97.3 88 16 129/69 (89) 95 I/O 12/11/17 12/11/17 12/11/17 12/12/17 12/12/17 12/12/17 07:00 15:00 23:00 07:00 15:00 23:00 Intake Total 2400 ml 950 ml 102 ml 1402 ml Balance 2400 ml 950 ml 102 ml 1402 ml Intake Oral 850 ml IV Total 2400 ml 100 ml 102 ml 1402 ml # Voids 3 2 # Bowel Movements 0 Result Diagram: 12/11/17 0556 12/12/17 0350 Objective Remarks GENERAL: Well-developed, well-nourished, in no acute distress. alert and orientated HEENT: Head is normocephalic without any lesions or masses noted. Facial features are symmetric. Eyes: Extraocular muscles are intact. Conjunctivae were clear. NECK: Supple without any masses. Trachea midline no deviation. No JVD, CARDIAC: Regular rhythm, regular rate. S1/S2 are heard. No murmurs gallops or rubs. LUNGS: Clear to auscultation bilaterally. No wheeze, rhonchi or rales. No use of accessory muscles on inspiration or expiration. ABDOMEN: Soft, nontender. Nondistended. Bowel sounds heard in all 4 quadrants. No organomegaly or masses. Negative rebound, negative guarding EXTREMITIES: No edema, pulses are equal bilaterally. No cyanosis or clubbing NEUROLOGY: Mood and affect appear appropriate. Cranial nerves II through XII grossly intact. Muscle strength 5/5 in upper and lower extremities bilaterally. Deep tendon reflexes are 2+ in upper and lower extremities bilaterally. RIGHT SHOULDER: Patient has good range of motion without any signs of tenderness. No restriction of range of motion. Area noted at the sternoclavicular joint has now developed some fluctuance. Patient indicates that feels like the swelling has improved. Urinary Catheter: No Vascular Central Line Catheter: No A/P Assessment and Plan New onset diabetes, likely type I Hemoglobin A1c 13.0 Increase Lantus 15 units subcutaneously twice daily Accu-Cheks with sliding scale insulin, required 29 units of insulin in the last 24 hours Awaiting diabetic and dietary consultation Patient will require referral to outpatient health unit supervisor Right shoulder pain with mild right sternoclavicular erythema, possible cellulitis/abscess Patient without any signs of sepsis, no leukocytosis, no tachycardia, afebrile Patient high risk for possible septic arthritis/abscess due to IV drug use Sed rate 42 and C-reactive protein 2.99 MRI indicates rotater cuff tear, bone marrow changes indicative of osteomyelitis in the sternomanubrial joint and proximal clavicle Soft tissue ultrasound of the sternoclavicular area does not indicate any drainable fluid collection. Patient was started on empirical antibiotic with cefepime, vancomycin. Infectious disease consulted for recommendations regarding the osteomyelitis Pseudohyponatremia, resolved Secondary to hyperglycemia Hypokalemia Continue monitor and replete as needed DVT prevention Low risk, early ambulation Discharge Planning Discharge planning indeterminate at this time. Patient with osteomyelitis awaiting recommendations from infectious disease, possible IV antibiotics, diabetes still uncontrolled. Prashant Wise Dec 12, 2017 08:04
[2017-12-12 08:23] LABS: VANCOMYCIN TROUGH 4.1 MCG/ML (5.0-10.0)
[2017-12-12] MEDS: INSULIN DETEMIR 100 UNITS/ML VIAL SQ SCH ×2 (08:51→21:11)
[2017-12-12] MEDS: CEFEPIME INJ 1,000 MG in SODIUM CHLORIDE 0.9% INJ 100 ML IV SCH ×2 (08:52→21:07)
[2017-12-12] MEDS: INSULIN ASPART SUPPLEMENTAL SCALE SQ SCH ×4 (08:52→21:12)
[2017-12-12 12:00] VITALS: BP 134/91; PULSE 86; RESP 14; TEMP 96.6; O2SAT 96
[2017-12-12 16:00] VITALS: BP 125/86; PULSE 74; RESP 14; TEMP 97.6; O2SAT 97
[2017-12-12 20:00] VITALS: BP 131/75; PULSE 88; RESP 20; TEMP 98.3; O2SAT 96
--- NOTE | 2017-12-12 20:20 | HHI.PR ---
Addendum to Inpatient Note Additional Information seen today around 7 pm full note to follow Janet Crowe MD Dec 12, 2017 20:20
--- NOTE | 2017-12-12 20:21 | PD.ID.CON ---
History of Present Illness Service ID Consult Requested By Dr English Reason for Consult clavicle osteo, abscess Primary Care Physician No Primary Care Physician Diagnoses: History of Present Illness 37 yo male with h/o IV drug use was in rehab presented with poliuria, polidipsia and was diagnosed with new onset diabetes also developped pain in R shoulder sp cortizone shots he has MRI done that was positive for osteomyelitis of sternomanubrial joint with edema in the marrow of both the sternum and proximal clavicle adjacent to the joint. pt was started on cefepieme, vancomycin Review of Systems Constitutional: COMPLAINS OF: Weight loss Endocrine: COMPLAINS OF: Polydipsia, Polyuria Cardiovascular: COMPLAINS OF: Chest pain Musculoskeletal: COMPLAINS OF: Joint pain (R shoulder) Except as stated in HPI: all other systems reviewed are Neg Past Family Social History Allergies: Coded Allergies: No Known Allergies (Unverified Allergy, Unknown, 12/09/17) Past Medical History IVDU DM Past Surgical History none Active Ordered Medications Medications where reviewed in EMR Antibiotics Include: cefepime, vancomycin Family History reviewed non contributory to currect iD issue Social History Patient states that he smokes approximate 2 cigarettes a day since he was 18 years old. Denies any alcohol use. Patient admits to IV drug use with Dilaudid /heroin Physical Exam Vital Signs Vital Signs Date Time Temp Pulse Resp B/P (MAP) Pulse Ox O2 Delivery O2 Flow Rate FiO2 12/12/17 16:00 97.6 74 14 125/86 (99) 97 12/12/17 12:00 96.6 86 14 134/91 (105) 96 12/12/17 08:00 95.9 84 14 134/90 (105) 96 12/12/17 00:00 97.6 70 16 136/69 (91) 99 Physical Exam CONSTITUTIONAL/GENERAL: This is an adequately nourished patient, in no apparent distress. TUBES/LINES/DRAINS: SKIN: No jaundice, rashes, or lesions. Skin temperature appropriate. Not diaphoretic. HEAD: Atraumatic. Normocephalic. EYES: Pupils equal and round and reactive. Extraocular motions intact. No scleral icterus. No injection or drainage. Fundi not examined. ENT: Hearing grossly normal. Nose without bleeding or purulent drainage. Throat without visible erythema, exudates, masses, or lesions. NECK: Trachea midline. Supple, nontender. No palpable thyroid enlargement or nodularity. CHEST: ill defined edema, and fluctuant tender erythematous lesion over R clavicle/upper chest CARDIOVASCULAR: Regular rate and rhythm without murmurs, gallops, or rubs. No JVD. Peripheral pulses symmetric. RESPIRATORY/CHEST: Symmetric, unlabored respirations. Clear to auscultation. Breath sounds equal bilaterally. No wheezes, rales, or rhonchi. GASTROINTESTINAL: Abdomen soft, non-tender, nondistended. No hepato-splenomegaly , or palpable masses. No guarding. Bowel sounds present. GENITOURINARY: Without palpable bladder distension. MUSCULOSKELETAL: Extremities without clubbing, cyanosis, or edema. No joint tenderness or effusion noted. No calf tenderness. No mottling or clubbing. LYMPHATICS: No palpable cervical or supraclavicular adenopathy. NEUROLOGICAL: Awake and alert. Motor and sensory grossly within normal limits. Follows commands. Clear speech. Moves all extremities. PSYCHIATRIC: No obvious anxiety/depression. no apparent hallucinations or other psychotic thought process. Laboratory Laboratory Tests Test 12/12/17 03:50 Creatinine 0.67 Estimat Glomerular Filtration Rate 133 Vancomycin Level Trough 4.1 Date/Time Source Procedure Growth Status 12/09/17 17:09 Blood Peripheral Aerobic Blood Culture - Preliminary NO GROWTH IN 3 DAYS Resulted 12/09/17 17:09 Blood Peripheral Anaerobic Blood Culture - Preliminary NO GROWTH IN 3 DAYS Resulted Result Diagram: 12/11/17 0556 12/12/17 0350 Imaging Last Impressions Soft Tissue Ultrasound 12/11/17 0000 Signed Impressions: Service Date/Time: Monday, December 11, 2017 08:57 - CONCLUSION: Apparent Inflammatory changes without drainable abscess. Stanislav Smith MD FACR Shoulder MRI 12/11/17 0000 Signed Impressions: Service Date/Time: Monday, December 11, 2017 10:24 - CONCLUSION: MRI would be consistent with vasculitis sternomanubrial joint with edema in the marrow of both the sternum and proximal clavicle adjacent to the joint. Marked soft tissue induration is present as well. Stanislav Smith MD FACR Chest X-Ray 12/09/17 1636 Signed Impressions: Service Date/Time: Saturday, December 09, 2017 16:47 - CONCLUSION: Normal examination. Edu Pacheco MD Assessment and Plan Assessment and Plan Osteomyelitis sternomanubrial joint with edema in the marrow of both the sternum and proximal clavicle adjacent to the joint and chest wall abscess consult surgery cont cefepime, vancomycin fu cultures Discussed Condition With Janet Huynh MD Dec 12, 2017 20:21
[2017-12-13] VITALS: BP 128/81; PULSE 78; RESP 19; TEMP 98.1; O2SAT 95
[2017-12-13] MEDS: VANCOMYCIN INJ 1,250 MG in SODIUM CHLOR 0.9% 250 ML INJ 250 ML IV SCH ×2 (04:11→15:17)
[2017-12-13] MEDS: POTASSIUM CHLORIDE INJ 20 MEQ in SODIUM CHLOR 0.9% 1000 ML INJ 1,000 ML IV SCH ×2 (05:43→08:18)
[2017-12-13 06:53] LABS: AUTOMATED NEUTROPHIL # 4.2 TH/MM3 (1.8-7.7); BASOPHIL % 0.5 % (0.0-2.0); EOSINOPHIL # 0.1 TH/MM3 (0-0.4); EOSINOPHIL % 1.7 % (0.0-4.0); HEMATOCRIT 43.1 % (39.0-51.0); HEMOGLOBIN 14.1 GM/DL (13.0-17.0); LYMPH % 38.9 % (9.0-44.0); LYMPHOCYTE # 2.9 TH/MM3 (1.0-4.8); MEAN CELL VOLUME 84.2 FL (80.0-100.0); MEAN CORPUSCULAR HEMOGLOBIN 27.5 PG (27.0-34.0); MEAN CORPUSCULAR HGB CONC 32.7 % (32.0-36.0); MEAN PLATELET VOLUME 6.6 FL (7.0-11.0); MONO % 5.7 % (0.0-8.0); MONOCYTE # 0.4 TH/MM3 (0-0.9); NEUT % 53.2 % (16.0-70.0); PLATELET COUNT 369 TH/MM3 (150-450); RED BLOOD COUNT 5.12 MIL/MM3 (4.50-5.90); RED CELL DISTRIBUTION WIDTH 12.3 % (11.6-17.2); WHITE BLOOD COUNT 7.6 TH/MM3 (4.0-11.0)
[2017-12-13 07:13] LABS: INTERNATIONAL NORMALIZED RATIO 0.9 RATIO; PROTHROMBIN TIME - PATIENT 9.6 SEC (9.8-11.6)
[2017-12-13 08:00] VITALS: BP 137/90; PULSE 83; RESP 16; TEMP 97.9; O2SAT 96
[2017-12-13] MEDS: CEFEPIME INJ 1,000 MG in SODIUM CHLORIDE 0.9% INJ 100 ML IV SCH ×2 (08:17→23:00)
[2017-12-13] MEDS: INSULIN ASPART SUPPLEMENTAL SCALE SQ SCH ×4 (08:17→22:53)
[2017-12-13] MEDS: INSULIN DETEMIR 100 UNITS/ML VIAL SQ SCH ×2 (08:18→22:53)
[2017-12-13 12:00] VITALS: BP 136/81; PULSE 89; RESP 18; TEMP 98.1; O2SAT 97
--- NOTE | 2017-12-13 12:09 | HHI.PR ---
Subjective Remarks Patient seen today in follow-up for right shoulder and sternal manubrium joint pain. Overall clinically improved. Infectious disease consultation completed and concern for abscess. Or so/CV surgery consultation is pending. Patient is tolerating ceftriaxone without difficulty and his pain is minimal. Blood glucose still quite uncontrolled Objective Vitals Vital Signs Date Time Temp Pulse Resp B/P (MAP) Pulse Ox O2 Delivery O2 Flow Rate FiO2 12/13/17 08:00 97.9 83 16 137/90 (106) 96 12/13/17 00:00 98.1 78 19 128/81 (97) 95 12/12/17 20:00 98.3 88 20 131/75 (93) 96 12/12/17 16:00 97.6 74 14 125/86 (99) 97 I/O 12/12/17 12/12/17 12/12/17 12/13/17 12/13/17 12/13/17 07:00 15:00 23:00 07:00 15:00 23:00 Intake Total 1402 ml 1040 ml 100 ml 1000 ml 363 ml Balance 1402 ml 1040 ml 100 ml 1000 ml 363 ml Intake Oral 240 ml IV Total 1402 ml 800 ml 100 ml 1000 ml 363 ml # Voids 2 3 3 # Bowel Movements 1 Result Diagram: 12/13/17 0530 12/12/17 0350 Objective Remarks GENERAL: This is a well-nourished, well-developed patient, in no apparent distress. CARDIOVASCULAR: Regular rate and rhythm without murmurs, gallops, or rubs. RESPIRATORY: Clear to auscultation. Breath sounds equal bilaterally. No wheezes , rales, or rhonchi. GASTROINTESTINAL: Abdomen soft, non-tender, nondistended. Normal active bowel sounds MUSCULOSKELETAL: Extremities without clubbing, cyanosis, or edema. NEURO: Alert & Oriented x4 to person, place, time, situation. Moves all ext x4 A/P Problem List: (1) New onset type 1 diabetes mellitus, uncontrolled ICD Code: E10.65 - Type 1 diabetes mellitus with hyperglycemia Plan: Continue with insulin long-acting twice a day with short acting with meals and sliding scale and adjust as needed Hemoglobin A1c 13 (2) IV drug user ICD Code: F19.90 - Other psychoactive substance use, unspecified, uncomplicated Plan: No evidence of withdrawal at this time, patient counseled to continue plans for abstinence (3) Right shoulder pain ICD Code: M25.511 - Pain in right shoulder Plan: Worrisome for osteomyelitis and abscess, continue IV ceftriaxone for now CV surgery and orthopedic consult pending for possible abscess drainage Assessment and Plan Renetta Bolden MD Dec 13, 2017 12:09
[2017-12-13] MEDS: INSULIN ASPART 1,000 UNITS/10 ML VIAL SQ SCH ×2 (13:46→17:15)
[2017-12-13] MEDS: ENOXAPARIN SODIUM 40 MG/0.4 ML SYRINGE SQ SCH (13:47)
[2017-12-13 16:00] VITALS: BP 125/86; PULSE 86; RESP 16; TEMP 98.2; O2SAT 96
[2017-12-13 20:00] VITALS: BP 136/96; PULSE 93; RESP 20; TEMP 98.1; O2SAT 96
[2017-12-14] VITALS: BP 125/90; PULSE 83; RESP 20; TEMP 98.5; O2SAT 96
[2017-12-14] MEDS ORDERED: VANCOMYCIN TROUGH ONE (03:45)
[2017-12-14] MEDS: VANCOMYCIN INJ 1,250 MG in SODIUM CHLOR 0.9% 250 ML INJ 250 ML IV SCH (04:22)
[2017-12-14 07:49] LABS: CREATININE 0.8 MG/DL (0.60-1.30)
[2017-12-14 07:50] VITALS: BP 137/81; PULSE 90; RESP 20; TEMP 99.7; O2SAT 97
[2017-12-14] MEDS: CEFEPIME INJ 1,000 MG in SODIUM CHLORIDE 0.9% INJ 100 ML IV SCH (07:54)
[2017-12-14] MEDS: INSULIN DETEMIR 100 UNITS/ML VIAL SQ SCH ×2 (07:54→21:49)
[2017-12-14] MEDS: INSULIN ASPART SUPPLEMENTAL SCALE SQ SCH ×4 (08:00→21:55)
--- NOTE | 2017-12-14 08:28 | HHI.IDPN ---
Subjective Subjective Remarks Feels better Able to move right shoulder better No fevers Allergies: Coded Allergies: No Known Allergies (Unverified Allergy, Unknown, 12/09/17) Review of Systems Constitutional Constitutional Remarks No fever Objective . Vital Signs Date Time Temp Pulse Resp B/P (MAP) Pulse Ox O2 Delivery O2 Flow Rate FiO2 12/14/17 00:00 98.5 83 20 125/90 (102) 96 12/13/17 20:00 98.1 93 20 136/96 (109) 96 12/13/17 16:00 98.2 86 16 125/86 (99) 96 12/13/17 12:00 98.1 89 18 136/81 (99) 97 . Laboratory Tests Test 12/13/17 05:30 White Blood Count 7.6 TH/MM3 Red Blood Count 5.12 MIL/MM3 Hemoglobin 14.1 GM/DL Hematocrit 43.1 % Mean Corpuscular Volume 84.2 FL Mean Corpuscular Hemoglobin 27.5 PG Mean Corpuscular Hemoglobin Concent 32.7 % Red Cell Distribution Width 12.3 % Platelet Count 369 TH/MM3 Mean Platelet Volume 6.6 FL Neutrophils (%) (Auto) 53.2 % Lymphocytes (%) (Auto) 38.9 % Monocytes (%) (Auto) 5.7 % Eosinophils (%) (Auto) 1.7 % Basophils (%) (Auto) 0.5 % Neutrophils # (Auto) 4.2 TH/MM3 Lymphocytes # (Auto) 2.9 TH/MM3 Monocytes # (Auto) 0.4 TH/MM3 Eosinophils # (Auto) 0.1 TH/MM3 Basophils # (Auto) 0.0 TH/MM3 CBC Comment DIFF FINAL Differential Comment Laboratory Tests Test 12/14/17 04:10 Creatinine 0.80 MG/DL Estimat Glomerular Filtration Rate 108 ML/MIN Physical Exam CONSTITUTIONAL/GENERAL: This is an adequately nourished patient, in no apparent distress. SKIN: Erythema on right sternoclavicular joint- seems improved HEAD: Atraumatic. Normocephalic. EYES: Pupils equal and round and reactive. Extraocular motions intact. No scleral icterus. No injection or drainage. Fundi not examined. ENT: Hearing grossly normal. Nose without bleeding or purulent drainage. Throat without visible erythema, exudates, masses, or lesions. NECK: Trachea midline. Supple, nontender. No palpable thyroid enlargement or nodularity. CHEST: Less tenderness - still with some erythema and swelling CARDIOVASCULAR: Regular rate and rhythm without murmurs, gallops, or rubs. No JVD. Peripheral pulses symmetric. RESPIRATORY/CHEST: Symmetric, unlabored respirations. Clear to auscultation. Breath sounds equal bilaterally. No wheezes, rales, or rhonchi. GASTROINTESTINAL: Abdomen soft, non-tender, nondistended. No hepato-splenomegaly , or palpable masses. No guarding. Bowel sounds present. GENITOURINARY: Without palpable bladder distension. MUSCULOSKELETAL: Extremities without clubbing, cyanosis, or edema. No joint tenderness or effusion noted. No calf tenderness. No mottling or clubbing. LYMPHATICS: No palpable cervical or supraclavicular adenopathy. NEUROLOGICAL: Awake and alert. Motor and sensory grossly within normal limits. Follows commands. Clear speech. Moves all extremities. PSYCHIATRIC: No obvious anxiety/depression. no apparent hallucinations or other psychotic thought process. Assessment & Plan Diagnosis: (1) Septic arthritis of sternoclavicular joint ICD Codes: M00.819 - Arthritis due to other bacteria, unspecified shoulder Status: Acute Plan: Blood cultures negative Awaiting surgical evaluation Continue IV Vancomycin and Cefepime for now (2) New onset type 1 diabetes mellitus, uncontrolled ICD Codes: E10.65 - Type 1 diabetes mellitus with hyperglycemia Problem Qualifiers (1) Septic arthritis of sternoclavicular joint: Qualified Codes: M00.9 - Pyogenic arthritis, unspecified Paris Gonzales MD Dec 14, 2017 08:28
[2017-12-14] MEDS: CEFEPIME INJ 2,000 MG in SODIUM CHLORIDE 0.9% INJ 100 ML IV SCH ×2 (09:00→22:30)
[2017-12-14] MEDS: INSULIN ASPART 1,000 UNITS/10 ML VIAL SQ SCH ×3 (09:30→18:30)
[2017-12-14 09:48] LABS: VANCOMYCIN TROUGH 5.9 MCG/ML (5.0-10.0)
[2017-12-14 11:54] VITALS: BP 137/92; PULSE 109; RESP 20; TEMP 97.9; O2SAT 98
--- NOTE | 2017-12-14 12:26 | HHI.PR ---
Subjective Remarks Patient seen and evaluated today in follow-up for chest wall abscess with osteomyelitis and for new onset diabetes. Overall doing better. Still awaiting cardiothoracic surgery consult. Orth O consult canceled by the infectious disease team apparently Objective Vitals Vital Signs Date Time Temp Pulse Resp B/P (MAP) Pulse Ox O2 Delivery O2 Flow Rate FiO2 12/14/17 11:54 97.9 109 20 137/92 (107) 98 12/14/17 07:50 99.7 90 20 137/81 (99) 97 12/14/17 00:00 98.5 83 20 125/90 (102) 96 12/13/17 20:00 98.1 93 20 136/96 (109) 96 12/13/17 16:00 98.2 86 16 125/86 (99) 96 I/O 12/13/17 12/13/17 12/13/17 12/14/17 12/14/17 12/14/17 07:00 15:00 23:00 07:00 15:00 23:00 Intake Total 1000 ml 1113 ml 600 ml 340 ml Balance 1000 ml 1113 ml 600 ml 340 ml Intake Oral 600 ml 240 ml IV Total 1000 ml 1113 ml 100 ml # Voids 3 4 3 # Bowel Movements 0 Result Diagram: 12/13/17 0530 12/14/17 0410 Objective Remarks GENERAL: This is a well-nourished, well-developed patient, in no apparent distress. Chest wall tenderness, erythema and fluctuance consistent with abscess CARDIOVASCULAR: Regular rate and rhythm without murmurs, gallops, or rubs. RESPIRATORY: Clear to auscultation. Breath sounds equal bilaterally. No wheezes , rales, or rhonchi. GASTROINTESTINAL: Abdomen soft, non-tender, nondistended. Normal active bowel sounds MUSCULOSKELETAL: Extremities without clubbing, cyanosis, or edema. NEURO: Alert & Oriented x4 to person, place, time, situation. Moves all ext x4 A/P Problem List: (1) New onset type 1 diabetes mellitus, uncontrolled ICD Code: E10.65 - Type 1 diabetes mellitus with hyperglycemia Plan: Continue with insulin long-acting twice a day with short acting with meals and sliding scale and adjust as needed Hemoglobin A1c 13 (2) IV drug user ICD Code: F19.90 - Other psychoactive substance use, unspecified, uncomplicated Plan: No evidence of withdrawal at this time, patient counseled to continue plans for abstinence (3) Right shoulder pain ICD Code: M25.511 - Pain in right shoulder Plan: Worrisome for osteomyelitis and abscess, continue IV ceftriaxone for now CV surgery consult pending for possible abscess drainage Assessment and Plan Renetta Bolden MD Dec 14, 2017 12:26
[2017-12-14] MEDS: ENOXAPARIN SODIUM 40 MG/0.4 ML SYRINGE SQ SCH (14:01)
[2017-12-14 15:50] VITALS: BP 128/79; PULSE 114; RESP 20; TEMP 97.7; O2SAT 94
[2017-12-14] MEDS ORDERED: VANCOMYCIN INJ 1,400 MG in SODIUM CHLORID 0.9% 500 ML INJ 500 ML IV SCH (18:00)
[2017-12-14 20:00] VITALS: BP 150/82; PULSE 93; RESP 20; TEMP 98.6; O2SAT 96
[2017-12-15] VITALS: BP 107/57; PULSE 89; RESP 20; TEMP 98.4; O2SAT 96
[2017-12-15] MEDS: VANCOMYCIN INJ 1,400 MG in SODIUM CHLORID 0.9% 500 ML INJ 500 ML IV SCH ×2 (06:33→17:59)
[2017-12-15 07:50] VITALS: BP 130/88; PULSE 93; RESP 20; TEMP 96.4; O2SAT 95
[2017-12-15] MEDS: INSULIN ASPART SUPPLEMENTAL SCALE SQ SCH ×4 (07:53→21:48)
[2017-12-15] MEDS: INSULIN ASPART 1,000 UNITS/10 ML VIAL SQ SCH ×3 (09:55→18:52)
[2017-12-15] MEDS: INSULIN DETEMIR 100 UNITS/ML VIAL SQ SCH ×2 (09:57→21:48)
[2017-12-15] MEDS ORDERED: IOHEXOL 350 MG/ML 10 ML VIAL (for RAD DIAG) IVCONTRAST ONE (10:24)
--- NOTE | 2017-12-15 10:42 | RADRPT ---
EXAM DATE/TIME: 12/15/2017 10:14 [facility] COMPARISON: No previous studies available for comparison. INDICATIONS : Right upper anterior chest pain, redness and swelling. Evaluate for abscess. IV CONTRAST: 55 cc Omnipaque 350 (iohexol) IV RADIATION DOSE: 6.74 CTDIvol (mGy) MEDICAL HISTORY : Hypertension. Hepatitis. Polyuria. Diabetes. SURGICAL HISTORY : None. ENCOUNTER: Initial ACUITY: 1 month PAIN SCALE: 7/10 LOCATION: Right chest TECHNIQUE: Volumetric scanning of the chest was performed. Using automated exposure control and adjustment of t he mA and/or kV according to patient size, radiation dose was kept as low as reasonably achievable to obtain optimal diagnostic quality images. DICOM format image data is available electronically for review and comparison. Follow-up recommendations for detected pulmonary nodules are based at a minimum on nodule size and pa tient risk factors according to Fleischner Society Guidelines. FINDINGS: LUNGS: There is no consolidation or pneumothorax. No concerning pulmonary nodule is visualized. PLEURA: There is no pleural thickening or pleural effusion. MEDIASTINUM: The heart and great vessels demonstrate no acute abnormality. There is no mediastinal or hilar lymph adenopathy. AXILLAE: Within normal limits. No lymphadenopathy. SKELETAL: Examination is abnormal. There are erosive changes involving the right clavicle head at the sternocla vicular joint and the anterior right first rib at the sternochondral joints. There is associated soft tissue edema and stranding in this region. No definite drainable focal fluid collection. Remaining o sseous structures are intact. MISCELLANEOUS: The visualized upper abdominal organs demonstrate no acute abnormality. CONCLUSION: 1. Cellulitis of the right anterior superior chest wall with associated erosive change involving the right clavicle head at the sternoclavicular joint and the anterior right first rib at the sternochond ral joint consistent with septic arthritis and osteomyelitis. 2. No drainable abscess at this time. Basil Bundy MD on December 15, 2017 at 10:27 Board Certified Radiologist. This report was verified electronically.
[2017-12-15 11:50] VITALS: BP 122/70; PULSE 92; RESP 20; TEMP 98.7; O2SAT 96
[2017-12-15] MEDS: CEFEPIME INJ 2,000 MG in SODIUM CHLORIDE 0.9% INJ 100 ML IV SCH (12:36)
--- NOTE | 2017-12-15 13:09 | HHI.PR ---
Subjective Remarks Patient seen and evaluated in follow-up for right superior chest osteomyelitis. Patient's pain is improved however repeat imaging today is concerning as it does show erosive changes in the clavicular head as well as evidence of septic arthritis and osteomyelitis. This is discussed with the infectious disease team , general surgery team as well as the cardiothoracic surgery team. This point patient has been on antibiotics for quite some time and little can be gained from the invasive nature of surgery at this time. Procedures are not likely to change our treatment plan as the patient will regardless need long-term IV antibiotic therapy. Objective Vitals Vital Signs Date Time Temp Pulse Resp B/P (MAP) Pulse Ox O2 Delivery O2 Flow Rate FiO2 12/15/17 07:50 96.4 93 20 130/88 (102) 95 12/15/17 00:00 98.4 89 20 107/57 (74) 96 12/14/17 20:00 98.6 93 20 150/82 (104) 96 12/14/17 15:50 97.7 114 20 128/79 (95) 94 I/O 12/14/17 12/14/17 12/14/17 12/15/17 12/15/17 12/15/17 07:00 15:00 23:00 07:00 15:00 23:00 Intake Total 340 ml 1897 ml 240 ml Output Total 4 ml Balance 340 ml 1893 ml 240 ml Intake Oral 240 ml 1383 ml 240 ml IV Total 100 ml 514 ml Output Urine Total 4 ml # Voids 3 1 # Bowel Movements 0 0 0 Result Diagram: 12/13/17 0530 12/14/17 0410 Objective Remarks GENERAL: This is a well-nourished, well-developed patient, in no apparent distress. Chest wall tenderness, erythema and fluctuance improved today CARDIOVASCULAR: Regular rate and rhythm without murmurs, gallops, or rubs. RESPIRATORY: Clear to auscultation. Breath sounds equal bilaterally. No wheezes , rales, or rhonchi. GASTROINTESTINAL: Abdomen soft, non-tender, nondistended. Normal active bowel sounds MUSCULOSKELETAL: Extremities without clubbing, cyanosis, or edema. NEURO: Alert & Oriented x4 to person, place, time, situation. Moves all ext x4 A/P Problem List: (1) New onset type 1 diabetes mellitus, uncontrolled ICD Code: E10.65 - Type 1 diabetes mellitus with hyperglycemia Plan: Continue with insulin long-acting twice a day with short acting with meals and sliding scale and adjust as needed Hemoglobin A1c 13 (2) IV drug user ICD Code: F19.90 - Other psychoactive substance use, unspecified, uncomplicated Plan: No evidence of withdrawal at this time, patient counseled to continue plans for abstinence (3) Right shoulder pain ICD Code: M25.511 - Pain in right shoulder Plan: CT findings are consistent with osteomyelitis and septic joint, continue IV cefepime and vancomycin I did discuss with infectious disease and cardiothoracic surgery teams. At this point little can be gained from doing a tissue culture the patient has been on antibiotics for quite some time and clinically appears to be improving. I do recommend that we continue to watch the patient on antibiotics and plan for continued treatment with IV antibiotics. This is discussed with the patient Assessment and Plan salas/Renetta Fajardo MD Dec 15, 2017 13:09
[2017-12-15] MEDS: ENOXAPARIN SODIUM 40 MG/0.4 ML SYRINGE SQ SCH (15:31)
[2017-12-15 15:55] VITALS: BP 122/78; PULSE 95; RESP 20; TEMP 98.2; O2SAT 96
--- NOTE | 2017-12-15 18:33 | HHI.IDPN ---
Subjective Subjective Remarks ID FU HARMAN He is Feeling better Able to move right shoulder better No fevers Allergies: Coded Allergies: No Known Allergies (Unverified Allergy, Unknown, 12/09/17) Objective . Vital Signs Date Time Temp Pulse Resp B/P (MAP) Pulse Ox O2 Delivery O2 Flow Rate FiO2 12/15/17 15:55 98.2 95 20 122/78 (93) 96 12/15/17 11:50 98.7 92 20 122/70 (87) 96 12/15/17 07:50 96.4 93 20 130/88 (102) 95 12/15/17 00:00 98.4 89 20 107/57 (74) 96 12/14/17 20:00 98.6 93 20 150/82 (104) 96 12/15/17 12/15/17 12/16/17 15:00 23:00 07:00 Intake Total 1302 ml Balance 1302 ml Intake Oral 1302 ml # Voids 3 # Bowel Movements 0 . Laboratory Tests Test 12/14/17 04:10 Creatinine 0.80 MG/DL Estimat Glomerular Filtration Rate 108 ML/MIN Physical Exam CONSTITUTIONAL/GENERAL: This is an adequately nourished patient, in no apparent distress. SKIN: Erythema on right sternoclavicular joint- seems improved HEAD: Atraumatic. Normocephalic. EYES: Pupils equal and round and reactive. Extraocular motions intact. No scleral icterus. No injection or drainage. Fundi not examined. ENT: Hearing grossly normal. Nose without bleeding or purulent drainage. Throat without visible erythema, exudates, masses, or lesions. NECK: Trachea midline. Supple, nontender. No palpable thyroid enlargement or nodularity. CHEST: Less tenderness - still with some erythema and swelling CARDIOVASCULAR: Regular rate and rhythm without murmurs, gallops, or rubs. No JVD. Peripheral pulses symmetric. RESPIRATORY/CHEST: Symmetric, unlabored respirations. Clear to auscultation. Breath sounds equal bilaterally. No wheezes, rales, or rhonchi. GASTROINTESTINAL: Abdomen soft, non-tender, nondistended. No hepato-splenomegaly , or palpable masses. No guarding. Bowel sounds present. GENITOURINARY: Without palpable bladder distension. MUSCULOSKELETAL: Extremities without clubbing, cyanosis, or edema. No joint tenderness or effusion noted. No calf tenderness. No mottling or clubbing. LYMPHATICS: No palpable cervical or supraclavicular adenopathy. NEUROLOGICAL: Awake and alert. Motor and sensory grossly within normal limits. Follows commands. Clear speech. Moves all extremities. PSYCHIATRIC: No obvious anxiety/depression. no apparent hallucinations or other psychotic thought process. Assessment & Plan Diagnosis: (1) Right shoulder pain ICD Codes: M25.511 - Pain in right shoulder (2) Septic arthritis of sternoclavicular joint ICD Codes: M00.819 - Arthritis due to other bacteria, unspecified shoulder Status: Acute Plan: vancomycin/cefepime follow esr was 42 12/10 will fu Problem Qualifiers (1) Septic arthritis of sternoclavicular joint: Qualified Codes: M00.9 - Pyogenic arthritis, unspecified Crystal Hernandez Dec 15, 2017 18:33
[2017-12-15 20:00] VITALS: BP 125/81; PULSE 101; RESP 20; TEMP 98.4; O2SAT 97
[2017-12-16] VITALS: BP 104/61; PULSE 78; RESP 20; TEMP 97.9; O2SAT 95
[2017-12-16] MEDS: CEFEPIME INJ 2,000 MG in SODIUM CHLORIDE 0.9% INJ 100 ML IV SCH ×3 (00:37→23:27)
[2017-12-16] MEDS ORDERED: VANCOMYCIN TROUGH ONE (05:45)
[2017-12-16] MEDS: VANCOMYCIN INJ 1,400 MG in SODIUM CHLORID 0.9% 500 ML INJ 500 ML IV SCH (05:58)
[2017-12-16 06:19] LABS: CREATININE 0.87 MG/DL (0.60-1.30)
[2017-12-16] MEDS: INSULIN ASPART SUPPLEMENTAL SCALE SQ SCH ×4 (07:43→21:11)
[2017-12-16 08:00] VITALS: BP 140/79; PULSE 107; RESP 14; TEMP 96.9; O2SAT 97
[2017-12-16] MEDS: INSULIN DETEMIR 100 UNITS/ML VIAL SQ SCH (10:17)
[2017-12-16] MEDS: INSULIN ASPART 1,000 UNITS/10 ML VIAL SQ SCH ×3 (10:19→18:35)
[2017-12-16 12:00] VITALS: BP 124/78; PULSE 93; RESP 14; TEMP 97; O2SAT 95
--- NOTE | 2017-12-16 15:56 | HHI.IDPN ---
Subjective Subjective Remarks Rt sternoclavicular swelling markedly improved He is Feeling better Able to move right shoulder better No fevers Allergies: Coded Allergies: No Known Allergies (Unverified Allergy, Unknown, 12/09/17) Review of Systems Constitutional Constitutional Remarks No fever Objective . Vital Signs Date Time Temp Pulse Resp B/P (MAP) Pulse Ox O2 Delivery O2 Flow Rate FiO2 12/16/17 12:00 97.0 93 14 124/78 (93) 95 12/16/17 08:00 96.9 107 14 140/79 (99) 97 12/16/17 00:00 97.9 78 20 104/61 (75) 95 12/15/17 20:00 98.4 101 20 125/81 (96) 97 12/15/17 20:00 98.4 101 20 125/81 (96) 97 12/15/17 15:55 98.2 95 20 122/78 (93) 96 12/16/17 12/16/17 12/17/17 15:00 23:00 07:00 Intake Total 1274 ml Balance 1274 ml Intake Oral 660 ml IV Total 614 ml . Laboratory Tests Test 12/16/17 06:00 Creatinine 0.87 MG/DL Estimat Glomerular Filtration Rate 98 ML/MIN Physical Exam CONSTITUTIONAL/GENERAL: This is an adequately nourished patient, in no apparent distress. SKIN: Erythema on right sternoclavicular joint- markedly improved- not fluctuant HEAD: Atraumatic. Normocephalic. EYES: Pupils equal and round and reactive. Extraocular motions intact. No scleral icterus. No injection or drainage. Fundi not examined. ENT: Hearing grossly normal. Nose without bleeding or purulent drainage. Throat without visible erythema, exudates, masses, or lesions. NECK: Trachea midline. Supple, nontender. No palpable thyroid enlargement or nodularity. CHEST: Less tenderness - still with some erythema and swelling CARDIOVASCULAR: Regular rate and rhythm without murmurs, gallops, or rubs. No JVD. Peripheral pulses symmetric. RESPIRATORY/CHEST: Symmetric, unlabored respirations. Clear to auscultation. Breath sounds equal bilaterally. No wheezes, rales, or rhonchi. GASTROINTESTINAL: Abdomen soft, non-tender, nondistended. No hepato-splenomegaly , or palpable masses. No guarding. Bowel sounds present. GENITOURINARY: Without palpable bladder distension. MUSCULOSKELETAL: Extremities without clubbing, cyanosis, or edema. No joint tenderness or effusion noted. No calf tenderness. No mottling or clubbing. LYMPHATICS: No palpable cervical or supraclavicular adenopathy. NEUROLOGICAL: Awake and alert. Motor and sensory grossly within normal limits. Follows commands. Clear speech. Moves all extremities. PSYCHIATRIC: No obvious anxiety/depression. no apparent hallucinations or other psychotic thought process. Assessment & Plan Diagnosis: (1) Septic arthritis of sternoclavicular joint ICD Codes: M00.819 - Arthritis due to other bacteria, unspecified shoulder Status: Acute Plan: Blood cultures negative Continue IV Vancomycin and Cefepime - clinically improving Re check CRP If continues to improve - maybe able to finish course of antibiotics with PO antibiotics (2) New onset type 1 diabetes mellitus, uncontrolled ICD Codes: E10.65 - Type 1 diabetes mellitus with hyperglycemia Problem Qualifiers (1) Septic arthritis of sternoclavicular joint: Qualified Codes: M00.9 - Pyogenic arthritis, unspecified Paris Gonzales MD Dec 16, 2017 15:56
[2017-12-16 16:00] VITALS: BP 138/80; PULSE 91; RESP 14; TEMP 97.1; O2SAT 98
[2017-12-16] MEDS: ENOXAPARIN SODIUM 40 MG/0.4 ML SYRINGE SQ SCH (17:12)
[2017-12-16] MEDS: VANCOMYCIN INJ 1,500 MG in SODIUM CHLORID 0.9% 500 ML INJ 500 ML IV SCH (17:12)
[2017-12-16] MEDS ORDERED: GLUCAGON 1 MG/ML VIAL OTHER PRN (19:30)
[2017-12-16] MEDS ORDERED: DEXTROSE 50% IN WATER 50 ML VIAL(D50) IV PUSH PRN (19:30)
--- NOTE | 2017-12-16 19:42 | HHI.PR ---
Subjective Remarks No fevers. No new complaints. He reports that he had been in drug rehabilitation program for approximately 1 month before this recent diagnosis of osteomyelitis. He has not used any drugs since his drug free have program started, in October 2017. He would continue to be in this program at any time of discharge. Objective Vital Signs Date Time Temp Pulse Resp B/P (MAP) Pulse Ox O2 Delivery O2 Flow Rate FiO2 12/16/17 16:00 97.1 91 14 138/80 (99) 98 12/16/17 12:00 97.0 93 14 124/78 (93) 95 12/16/17 08:00 96.9 107 14 140/79 (99) 97 12/16/17 00:00 97.9 78 20 104/61 (75) 95 12/15/17 20:00 98.4 101 20 125/81 (96) 97 12/15/17 20:00 98.4 101 20 125/81 (96) 97 I/O 12/15/17 12/15/17 12/15/17 12/16/17 12/16/17 12/16/17 07:00 15:00 23:00 07:00 15:00 23:00 Intake Total 240 ml 1802 ml 100 ml 1274 ml 240 ml Balance 240 ml 1802 ml 100 ml 1274 ml 240 ml Intake Oral 240 ml 1302 ml 660 ml 240 ml IV Total 500 ml 100 ml 614 ml # Voids 1 3 4 # Bowel Movements 0 0 0 Result Diagram: 12/13/17 0530 12/16/17 0600 Objective Remarks GENERAL: NAD, A&Ox3 HEAD: Normocephalic. NECK: Supple, trachea midline. No lymphadenopathy. EYES: No scleral icterus. No injection or drainage. CARDIOVASCULAR: Regular rate and rhythm without murmurs, gallops, or rubs. RESPIRATORY: Breath sounds equal bilaterally. No accessory muscle use. GASTROINTESTINAL: Abdomen soft, non-tender, nondistended. MUSCULOSKELETAL: No cyanosis, or edema. SKIN: Warm and dry. NEURO: No focal neurological deficitis. A/P Problem List: (1) Right shoulder pain ICD Code: M25.511 - Pain in right shoulder (2) Septic arthritis of sternoclavicular joint ICD Code: M00.819 - Arthritis due to other bacteria, unspecified shoulder Status: Acute (3) New onset type 1 diabetes mellitus, uncontrolled ICD Code: E10.65 - Type 1 diabetes mellitus with hyperglycemia (4) Hyperglycemia ICD Code: R73.9 - Hyperglycemia, unspecified Status: Acute Assessment and Plan 37-year-old male admitted secondary to osteomyelitis and new onset hyperglycemia New onset type 1 diabetes mellitus Hemoglobin A1c shows pre-existing condition Etiology may be autoimmune given the patient's age at onset NPH, 25 units every morning and 15 units every afternoon Low-dose insulin sliding scale Follow blood sugars History of IV drug abuse Patient has been sober since entering a drug rehabilitation program in October 2017 Patient plans to continue and the program when he is discharged Right shoulder pain [place] mellitus of right clavicle and right sternoclavicular joint First rib osteomyelitis, right Continue cefepime and vancomycin ID following DVT prophylaxis Lovenox Problem Qualifiers (1) Septic arthritis of sternoclavicular joint: Qualified Codes: M00.9 - Pyogenic arthritis, unspecified Milo Goode MD Dec 16, 2017 19:42
[2017-12-16] MEDS ORDERED: INSULIN HUMAN NPH 1,000 UNITS/10 ML VIAL SQ SCH (20:00)
[2017-12-16 20:42] VITALS: BP 140/83; PULSE 102; RESP 18; TEMP 97.9; O2SAT 96
[2017-12-17 00:04] VITALS: BP 104/69; PULSE 91; RESP 16; TEMP 98; O2SAT 98
[2017-12-17] MEDS: VANCOMYCIN INJ 1,500 MG in SODIUM CHLORID 0.9% 500 ML INJ 500 ML IV SCH ×2 (05:10→17:08)
[2017-12-17 08:00] VITALS: BP 147/82; PULSE 102; RESP 14; TEMP 96.6; O2SAT 97
[2017-12-17] MEDS: INSULIN ASPART SUPPLEMENTAL SCALE SQ SCH ×4 (08:00→19:57)
[2017-12-17] MEDS ORDERED: INSULIN HUMAN NPH 1,000 UNITS/10 ML VIAL SQ SCH ×2 (08:00→20:00)
[2017-12-17] MEDS: INSULIN ASPART 1,000 UNITS/10 ML VIAL SQ SCH ×3 (08:14→17:05)
[2017-12-17 08:19] LABS: AUTOMATED NEUTROPHIL # 4.2 TH/MM3 (1.8-7.7); BASOPHIL # 0.1 TH/MM3 (0-0.2); BASOPHIL % 0.8 % (0.0-2.0); EOSINOPHIL # 0.2 TH/MM3 (0-0.4); EOSINOPHIL % 2.3 % (0.0-4.0); HEMATOCRIT 39.9 % (39.0-51.0); HEMOGLOBIN 13.3 GM/DL (13.0-17.0); LYMPH % 28.7 % (9.0-44.0); LYMPHOCYTE # 1.9 TH/MM3 (1.0-4.8); MEAN CELL VOLUME 83.3 FL (80.0-100.0); MEAN CORPUSCULAR HEMOGLOBIN 27.7 PG (27.0-34.0); MEAN CORPUSCULAR HGB CONC 33.2 % (32.0-36.0); MEAN PLATELET VOLUME 6.3 FL (7.0-11.0); MONO % 6.5 % (0.0-8.0); MONOCYTE # 0.4 TH/MM3 (0-0.9); NEUT % 61.7 % (16.0-70.0); PLATELET COUNT 381 TH/MM3 (150-450); RED CELL DISTRIBUTION WIDTH 12.5 % (11.6-17.2); WHITE BLOOD COUNT 6.8 TH/MM3 (4.0-11.0)
[2017-12-17 08:25] LABS: CHLORIDE 103 MEQ/L (98-107); SODIUM (NA) 137 MEQ/L (136-145)
[2017-12-17 08:31] LABS: ALBUMIN 2.9 GM/DL (3.4-5.0); CALCIUM 8.5 MG/DL (8.5-10.1); GLUCOSE,RANDOM 260 MG/DL (74-106)
[2017-12-17 08:32] LABS: BICARBONATE 27.2 MEQ/L (21.0-32.0); BLOOD UREA NITROGEN 15 MG/DL (7-18)
[2017-12-17 08:34] LABS: ALT (GPT) 91 U/L (12-78)
[2017-12-17 08:35] LABS: AST (GOT) 57 U/L (15-37); CREATININE 0.77 MG/DL (0.60-1.30); GLOMERULAR FILTRATION RATE 113 ML/MIN (>89)
[2017-12-17 08:36] LABS: TOTAL BILIRUBIN ADULT 0.2 MG/DL (0.2-1.0); TOTAL PROTEIN 7.2 GM/DL (6.4-8.2)
[2017-12-17 08:37] LABS: ALKALINE PHOSPHATASE 105 U/L (45-117)
[2017-12-17 09:17] LABS: WESTERGREN SEDIMENTATION RATE 45 mm/hr (0-15)
[2017-12-17] MEDS ORDERED: ACETAMINOPHEN 325 MG TAB PO PRN (11:00)
[2017-12-17] MEDS: CEFEPIME INJ 2,000 MG in SODIUM CHLORIDE 0.9% INJ 100 ML IV SCH ×2 (11:12→23:53)
[2017-12-17 12:00] VITALS: BP 128/77; PULSE 84; RESP 14; TEMP 97.4; O2SAT 97
[2017-12-17] MEDS: ENOXAPARIN SODIUM 40 MG/0.4 ML SYRINGE SQ SCH (14:35)
--- NOTE | 2017-12-17 15:10 | HHI.PR ---
Subjective Remarks Blood sugars not yet controlled. Adjustments were made yesterday. Further adjustment needed today. Objective Vital Signs Date Time Temp Pulse Resp B/P (MAP) Pulse Ox O2 Delivery O2 Flow Rate FiO2 12/17/17 12:12 20 12/17/17 12:00 97.4 84 14 128/77 (94) 97 12/17/17 08:00 96.6 102 14 147/82 (103) 97 12/17/17 04:44 12/17/17 00:04 98.0 91 16 104/69 (81) 98 12/16/17 20:42 97.9 102 18 140/83 (102) 96 12/16/17 16:00 97.1 91 14 138/80 (99) 98 I/O 12/16/17 12/16/17 12/16/17 12/17/17 12/17/17 12/17/17 07:00 15:00 23:00 07:00 15:00 23:00 Intake Total 100 ml 1274 ml 740 ml 374 ml 240 ml Balance 100 ml 1274 ml 740 ml 374 ml 240 ml Intake Oral 660 ml 240 ml 240 ml IV Total 100 ml 614 ml 500 ml 374 ml # Voids 4 2 # Bowel Movements 0 Result Diagram: 12/17/17 0710 12/17/17 0710 Objective Remarks GENERAL: NAD, A&Ox3 HEAD: Normocephalic. NECK: Supple, trachea midline. No lymphadenopathy. EYES: No scleral icterus. No injection or drainage. CARDIOVASCULAR: Regular rate and rhythm without murmurs, gallops, or rubs. RESPIRATORY: Breath sounds equal bilaterally. No accessory muscle use. GASTROINTESTINAL: Abdomen soft, non-tender, nondistended. MUSCULOSKELETAL: No cyanosis, or edema. SKIN: Warm and dry. NEURO: No focal neurological deficitis. A/P Problem List: (1) Right shoulder pain ICD Code: M25.511 - Pain in right shoulder (2) Septic arthritis of sternoclavicular joint ICD Code: M00.819 - Arthritis due to other bacteria, unspecified shoulder Status: Acute (3) New onset type 1 diabetes mellitus, uncontrolled ICD Code: E10.65 - Type 1 diabetes mellitus with hyperglycemia (4) Hyperglycemia ICD Code: R73.9 - Hyperglycemia, unspecified Status: Acute Assessment and Plan 37-year-old male admitted secondary to osteomyelitis and new onset hyperglycemia No new complaints today. Insulin change. NPH for a.m. and p.m. doses are increased. Continue to monitor blood sugars and adjust as needed for control. New onset type 1 diabetes mellitus Hemoglobin A1c shows pre-existing condition Etiology may be autoimmune given the patient's age at onset NPH, 25 units every morning and 15 units every afternoon Low-dose insulin sliding scale Follow blood sugars History of IV drug abuse Patient has been sober since entering a drug rehabilitation program in October 2017 Patient plans to continue and the program when he is discharged Right shoulder pain [place] mellitus of right clavicle and right sternoclavicular joint First rib osteomyelitis, right Continue cefepime and vancomycin ID following DVT prophylaxis Lovenox Problem Qualifiers (1) Septic arthritis of sternoclavicular joint: Qualified Codes: M00.9 - Pyogenic arthritis, unspecified Milo Goode MD Dec 17, 2017 15:10
[2017-12-17 16:00] VITALS: BP 130/99; PULSE 99; RESP 14; TEMP 97.1; O2SAT 100
[2017-12-17 21:12] VITALS: BP 136/90; PULSE 113; RESP 18; TEMP 98.9; O2SAT 99
[2017-12-18 00:14] VITALS: BP 142/78; PULSE 97; RESP 20; TEMP 98; O2SAT 98
[2017-12-18] MEDS ORDERED: VANCOMYCIN TROUGH ONE (05:45)
[2017-12-18] MEDS: VANCOMYCIN INJ 1,500 MG in SODIUM CHLORID 0.9% 500 ML INJ 500 ML IV SCH (05:57)
[2017-12-18 06:05] LABS: CREATININE 0.8 MG/DL (0.60-1.30)
[2017-12-18 07:30] LABS: VANCOMYCIN TROUGH 10.6 MCG/ML (5.0-10.0)
[2017-12-18 08:00] VITALS: BP 146/107; PULSE 89; RESP 16; TEMP 96.7; O2SAT 92
[2017-12-18] MEDS ORDERED: INSULIN HUMAN NPH 1,000 UNITS/10 ML VIAL SQ SCH (08:00)
[2017-12-18] MEDS: INSULIN ASPART SUPPLEMENTAL SCALE SQ SCH ×4 (08:14→20:57)
[2017-12-18] MEDS: INSULIN ASPART 1,000 UNITS/10 ML VIAL SQ SCH ×3 (09:23→18:11)
--- NOTE | 2017-12-18 10:36 | HHI.PR ---
Subjective Remarks Slow improvement in control of blood sugars, further adjustments needed. No new complaints from the patient. No fevers. Objective Vital Signs Date Time Temp Pulse Resp B/P (MAP) Pulse Ox O2 Delivery O2 Flow Rate FiO2 12/18/17 08:00 96.7 89 16 146/107 (120) 92 12/18/17 00:14 98.0 97 20 142/78 (99) 98 12/17/17 21:12 98.9 113 18 136/90 (105) 99 12/17/17 16:00 97.1 99 14 130/99 (109) 100 12/17/17 12:12 20 12/17/17 12:00 97.4 84 14 128/77 (94) 97 I/O 12/17/17 12/17/17 12/17/17 12/18/17 12/18/17 12/18/17 07:00 15:00 23:00 07:00 15:00 23:00 Intake Total 374 ml 240 ml 1284 ml 600 ml 515 ml Balance 374 ml 240 ml 1284 ml 600 ml 515 ml Intake Oral 240 ml 684 ml IV Total 374 ml 600 ml 600 ml 515 ml # Voids 2 4 4 # Bowel Movements 1 Result Diagram: 12/17/17 0710 12/18/17 0540 Objective Remarks GENERAL: NAD, A&Ox3 HEAD: Normocephalic. NECK: Supple, trachea midline. No lymphadenopathy. EYES: No scleral icterus. No injection or drainage. CARDIOVASCULAR: Regular rate and rhythm without murmurs, gallops, or rubs. RESPIRATORY: Breath sounds equal bilaterally. No accessory muscle use. GASTROINTESTINAL: Abdomen soft, non-tender, nondistended. MUSCULOSKELETAL: No cyanosis, or edema. SKIN: Warm and dry. NEURO: No focal neurological deficitis. A/P Problem List: (1) Right shoulder pain ICD Code: M25.511 - Pain in right shoulder (2) Septic arthritis of sternoclavicular joint ICD Code: M00.819 - Arthritis due to other bacteria, unspecified shoulder Status: Acute (3) New onset type 1 diabetes mellitus, uncontrolled ICD Code: E10.65 - Type 1 diabetes mellitus with hyperglycemia (4) Hyperglycemia ICD Code: R73.9 - Hyperglycemia, unspecified Status: Acute Assessment and Plan 37-year-old male admitted secondary to osteomyelitis and new onset hyperglycemia No new complaints today. Blood sugars not yet controlled. Blurred vision still an issue. Insulin changed again. NPH for a.m. and p.m. doses are increased. Continue to monitor blood sugars and adjust as needed for control. New onset type 1 diabetes mellitus Hemoglobin A1c shows pre-existing condition Etiology may be autoimmune given the patient's age at onset NPH, 25 units every morning and 15 units every afternoon Low-dose insulin sliding scale Follow blood sugars History of IV drug abuse Patient has been sober since entering a drug rehabilitation program in October 2017 Patient plans to continue and the program when he is discharged Right shoulder pain [place] mellitus of right clavicle and right sternoclavicular joint First rib osteomyelitis, right Continue cefepime and vancomycin ID following DVT prophylaxis Lovenox Problem Qualifiers (1) Septic arthritis of sternoclavicular joint: Qualified Codes: M00.9 - Pyogenic arthritis, unspecified Milo Goode MD Dec 18, 2017 10:36
[2017-12-18] MEDS: CEFEPIME INJ 2,000 MG in SODIUM CHLORIDE 0.9% INJ 100 ML IV SCH (11:38)
[2017-12-18 12:00] VITALS: BP 149/97; PULSE 105; TEMP 98.1; O2SAT 96
[2017-12-18] MEDS: VANCOMYCIN 1,000 MG/NS 250 ML IV SCH ×2 (13:59)
[2017-12-18] MEDS: ENOXAPARIN SODIUM 40 MG/0.4 ML SYRINGE SQ SCH (14:23)
[2017-12-18 16:00] VITALS: BP 131/85; PULSE 93; RESP 15; TEMP 97.6; O2SAT 97
[2017-12-18 20:21] VITALS: BP 157/86; PULSE 108; RESP 20; TEMP 98.3; O2SAT 97
[2017-12-18] MEDS: INSULIN HUMAN NPH 1,000 UNITS/10 ML VIAL SQ SCH (20:22)
[2017-12-19 00:07] VITALS: BP 115/76; PULSE 76; RESP 16; TEMP 97.9; O2SAT 98
[2017-12-19] MEDS: CEFEPIME INJ 2,000 MG in SODIUM CHLORIDE 0.9% INJ 100 ML IV SCH ×3 (00:36→23:52)
[2017-12-19] MEDS: VANCOMYCIN 1,000 MG/NS 250 ML IV SCH ×6 (05:44→22:26)
[2017-12-19] MEDS ORDERED: PHARMACY ORDERED LAB ONE (05:45)
[2017-12-19 08:00] VITALS: BP 132/81; PULSE 79; RESP 15; TEMP 97.1; O2SAT 95
[2017-12-19] MEDS: INSULIN ASPART 1,000 UNITS/10 ML VIAL SQ SCH ×4 (09:30→18:30)
[2017-12-19] MEDS: INSULIN HUMAN NPH 1,000 UNITS/10 ML VIAL SQ SCH ×2 (09:48→21:52)
[2017-12-19] MEDS: INSULIN ASPART SUPPLEMENTAL SCALE SQ SCH ×4 (09:50→21:53)
[2017-12-19 14:10] VITALS: BP 122/82; PULSE 91; RESP 15; TEMP 97.5; O2SAT 97
[2017-12-19] MEDS: ENOXAPARIN SODIUM 40 MG/0.4 ML SYRINGE SQ SCH (15:00)
[2017-12-19 17:30] VITALS: BP 120/81; PULSE 91; RESP 16; TEMP 96.8; O2SAT 98
--- NOTE | 2017-12-19 17:40 | HHI.PR ---
Subjective Remarks Low blood sugar this afternoon. Otherwise blood sugars have globally improved. Low sugar suspected to be related to mealtime dosing which is currently at 12 units. Objective Vital Signs Date Time Temp Pulse Resp B/P (MAP) Pulse Ox O2 Delivery O2 Flow Rate FiO2 12/19/17 14:10 97.5 91 15 122/82 (95) 97 12/19/17 08:00 97.1 79 15 132/81 (98) 95 12/19/17 04:47 12/19/17 00:07 97.9 76 16 115/76 (89) 98 12/18/17 20:21 98.3 108 20 157/86 (109) 97 I/O 12/18/17 12/18/17 12/18/17 12/19/17 12/19/17 12/19/17 07:00 15:00 23:00 07:00 15:00 23:00 Intake Total 600 ml 865 ml 720 ml Balance 600 ml 865 ml 720 ml Intake Oral 720 ml IV Total 600 ml 865 ml # Voids 4 2 2 # Bowel Movements 0 Result Diagram: 12/17/17 0710 12/18/17 0540 Objective Remarks GENERAL: NAD, A&Ox3 HEAD: Normocephalic. NECK: Supple, trachea midline. No lymphadenopathy. EYES: No scleral icterus. No injection or drainage. CARDIOVASCULAR: Regular rate and rhythm without murmurs, gallops, or rubs. RESPIRATORY: Breath sounds equal bilaterally. No accessory muscle use. GASTROINTESTINAL: Abdomen soft, non-tender, nondistended. MUSCULOSKELETAL: No cyanosis, or edema. SKIN: Warm and dry. NEURO: No focal neurological deficitis. A/P Problem List: (1) Right shoulder pain ICD Code: M25.511 - Pain in right shoulder (2) Septic arthritis of sternoclavicular joint ICD Code: M00.819 - Arthritis due to other bacteria, unspecified shoulder Status: Acute (3) New onset type 1 diabetes mellitus, uncontrolled ICD Code: E10.65 - Type 1 diabetes mellitus with hyperglycemia (4) Hyperglycemia ICD Code: R73.9 - Hyperglycemia, unspecified Status: Acute Assessment and Plan 37-year-old male admitted secondary to osteomyelitis and new onset hyperglycemia Readjust insulins. Continue long-acting insulins but just short acting insulin at meals down to 6 units from 12 units. Continue sliding scale. Continue to monitor blood sugars. Readjust insulins as needed for blood sugar control. New onset type 1 diabetes mellitus Hemoglobin A1c shows pre-existing condition Etiology may be autoimmune given the patient's age at onset NPH, 25 units every morning and 15 units every afternoon Low-dose insulin sliding scale Follow blood sugars History of IV drug abuse Patient has been sober since entering a drug rehabilitation program in October 2017 Patient plans to continue and the program when he is discharged Right shoulder pain [place] mellitus of right clavicle and right sternoclavicular joint First rib osteomyelitis, right Continue cefepime and vancomycin ID following DVT prophylaxis Lovenox Problem Qualifiers (1) Septic arthritis of sternoclavicular joint: Qualified Codes: M00.9 - Pyogenic arthritis, unspecified Milo Goode MD Dec 19, 2017 17:39
[2017-12-19 20:00] VITALS: BP 126/95; PULSE 98; RESP 20; TEMP 97; O2SAT 97
--- NOTE | 2017-12-19 20:54 | HHI.IDPN ---
Subjective Subjective Remarks Rt sternoclavicular swelling markedly improved- no tenderness or pain Feels much better Able to move right shoulder better No fevers Allergies: Coded Allergies: No Known Allergies (Unverified Allergy, Unknown, 12/09/17) Review of Systems Constitutional Constitutional Remarks No fever Objective . Vital Signs Date Time Temp Pulse Resp B/P (MAP) Pulse Ox O2 Delivery O2 Flow Rate FiO2 12/19/17 17:30 96.8 91 16 120/81 (94) 98 12/19/17 14:10 97.5 91 15 122/82 (95) 97 12/19/17 08:00 97.1 79 15 132/81 (98) 95 12/19/17 04:47 12/19/17 00:07 97.9 76 16 115/76 (89) 98 . Laboratory Tests Test 12/18/17 05:40 Creatinine 0.80 MG/DL Estimat Glomerular Filtration Rate 108 ML/MIN Physical Exam CONSTITUTIONAL/GENERAL: This is an adequately nourished patient, in no apparent distress. SKIN: Erythema on right sternoclavicular joint- markedly improved- not fluctuant - no tenderness HEAD: Atraumatic. Normocephalic. EYES: Pupils equal and round and reactive. Extraocular motions intact. No scleral icterus. No injection or drainage. Fundi not examined. ENT: Hearing grossly normal. Nose without bleeding or purulent drainage. Throat without visible erythema, exudates, masses, or lesions. NECK: Trachea midline. Supple, nontender. No palpable thyroid enlargement or nodularity. CHEST: Less tenderness - still with some erythema and swelling CARDIOVASCULAR: Regular rate and rhythm without murmurs, gallops, or rubs. No JVD. Peripheral pulses symmetric. RESPIRATORY/CHEST: Symmetric, unlabored respirations. Clear to auscultation. Breath sounds equal bilaterally. No wheezes, rales, or rhonchi. GASTROINTESTINAL: Abdomen soft, non-tender, nondistended. No hepato-splenomegaly , or palpable masses. No guarding. Bowel sounds present. GENITOURINARY: Without palpable bladder distension. MUSCULOSKELETAL: Extremities without clubbing, cyanosis, or edema. No joint tenderness or effusion noted. No calf tenderness. No mottling or clubbing. LYMPHATICS: No palpable cervical or supraclavicular adenopathy. NEUROLOGICAL: Awake and alert. Motor and sensory grossly within normal limits. Follows commands. Clear speech. Moves all extremities. PSYCHIATRIC: No obvious anxiety/depression. no apparent hallucinations or other psychotic thought process. Assessment & Plan Diagnosis: (1) Septic arthritis of sternoclavicular joint ICD Codes: M00.819 - Arthritis due to other bacteria, unspecified shoulder Status: Acute Plan: Blood cultures negative Continue IV Vancomycin and Cefepime today Repeat CRP is normal Patient can be changed to PO Cipro 500 mg bid with Doxy 100 mg po bid x 4 weeks He should follow up in 3-4 weeks with me. (2) New onset type 1 diabetes mellitus, uncontrolled ICD Codes: E10.65 - Type 1 diabetes mellitus with hyperglycemia Problem Qualifiers (1) Septic arthritis of sternoclavicular joint: Qualified Codes: M00.9 - Pyogenic arthritis, unspecified Paris Gonzales MD Dec 19, 2017 20:54
[2017-12-20] VITALS: BP 101/58; PULSE 79; RESP 20; TEMP 97.1; O2SAT 96
[2017-12-20] MEDS: VANCOMYCIN 1,000 MG/NS 250 ML IV SCH ×2 (06:17)
[2017-12-20 08:00] VITALS: BP 148/87; PULSE 87; RESP 15; TEMP 96.8; O2SAT 99
[2017-12-20] MEDS ORDERED: CIPR500T2 PO (09:27)
[2017-12-20] MEDS ORDERED: LANCETS1 MI1 (09:27)
[2017-12-20] MEDS ORDERED: NOVORP2 SQ (09:27)
[2017-12-20] MEDS ORDERED: LACTTAB8 PO (09:27)
[2017-12-20] MEDS ORDERED: GLUCMIS7 (09:27)
[2017-12-20] MEDS ORDERED: PEN29MIS (09:27)
[2017-12-20] MEDS ORDERED: ALCO1PAD (09:27)
[2017-12-20] MEDS ORDERED: NOVONP2 SQ (09:27)
[2017-12-20] MEDS ORDERED: BLOOD GLUCOSE T1 TES (09:27)
[2017-12-20] MEDS ORDERED: DOXY100C PO (09:27)
[2017-12-20] MEDS: INSULIN HUMAN NPH 1,000 UNITS/10 ML VIAL SQ SCH (09:29)
[2017-12-20] MEDS: INSULIN ASPART 1,000 UNITS/10 ML VIAL SQ SCH ×2 (09:30→12:34)
[2017-12-20] MEDS: INSULIN ASPART SUPPLEMENTAL SCALE SQ SCH ×2 (09:31→12:34)
--- NOTE | 2017-12-20 10:39 | HHI.DS ---
Discharge Summary Admission Date Dec 09, 2017 at 19:17 Discharge Date: Dec 20, 2017 Admitting Diagnosis New Onset Hyperglycemia, Cellulitis (1) New onset type 1 diabetes mellitus, uncontrolled ICD Code: E10.65 - Type 1 diabetes mellitus with hyperglycemia Diagnosis: Principal (2) IV drug user ICD Code: F19.90 - Other psychoactive substance use, unspecified, uncomplicated Diagnosis: Principal (3) Right shoulder pain ICD Code: M25.511 - Pain in right shoulder Diagnosis: Principal (4) Osteomyelitis ICD Code: M86.9 - Osteomyelitis, unspecified (5) Septic arthritis of sternoclavicular joint ICD Code: M00.819 - Arthritis due to other bacteria, unspecified shoulder Status: Acute Procedures None Brief History - From Admission 37 year-old male who is an IV drug user who is being evaluated for right shoulder pain in outpatient setting presented to the emergency department at the request of local urgent care center. Patient states that his symptoms started over a month ago where he went to an orthopedic on November 17 in which she had an evaluation of right shoulder. Patient states that he was evaluated and was given a cortisone injection. Since the cortisone injection he had some blurred vision. Subsequently he was referred to an petroleum production engineer to evaluated him for his blurred vision. Laboratory studies were requested and he was found to have hyperglycemia at that time. He was referred to urgent care center who subsequently notified him to come to the hospital for evaluation due to severe hyperglycemia. Patient indicates that he denies any history of diabetes, no family history, he is rather thin individual, states that he does not eat a bunch sugar. Patient is more concerned about his right shoulder. He states that he is an IV drug user where he does inject allotted which he was doing for the last 50-60 days. He feels that he may have an infection in his shoulder and clavicle from his habit. He specifically requests that this get evaluated while he is here in the hospital. I discussed with the patient his diabetes, counseled him extensively on diabetes, management. CBC/BMP: 12/17/17 0710 12/18/17 0540 Significant Findings Laboratory Tests Test 12/18/17 05:40 12/19/17 05:10 Vancomycin Level Trough 10.6 MCG/ML (5.0-10.0) PE at Discharge GENERAL: This is a well-nourished, well-developed patient, in no apparent distress. Chest wall tenderness, erythema and fluctuance improved today CARDIOVASCULAR: Regular rate and rhythm without murmurs, gallops, or rubs. RESPIRATORY: Clear to auscultation. Breath sounds equal bilaterally. No wheezes , rales, or rhonchi. GASTROINTESTINAL: Abdomen soft, non-tender, nondistended. Normal active bowel sounds MUSCULOSKELETAL: Extremities without clubbing, cyanosis, or edema. NEURO: Alert & Oriented x4 to person, place, time, situation. Moves all ext x4 Hospital Course Mr. Booth is a 37 year old male. He has a history of IVDU, but has been sober now and in rehab for almost two months. Likely at the time he was abusing , he had developed shoulder pain, this has persisted for weeks. He actually came to the ER for blurred vision, when he has told by an door clamp operator that he could have Diabetes and work up of his shoulder pain revealed osteomyelitis at the right cervical/sternoclavicular joint/1st rib. He has had good response to IV therapy (Vancomycin and Cefepime). Blood sugars have improved control at this point on short and long acting insulins. He has also been approved for transition to Oral Cipro and Doxycycline for 4 more weeks. Medically stable today for discharge with continuation of antibiotics with outpatient ID follow up and follow up regarding diabetes with PCP. Pt Condition on Discharge: Stable Discharge Disposition: Discharge Home Discharge Time: <= 30 minutes Discharge Instructions DIET: Follow Instructions for: Diabetic Diet Activities you can perform: Regular-No Restrictions Follow up Referrals: Infectious Disease - 3 Weeks with Paris Gonzales PCP Follow-up - 2 Weeks New Medications: Alcohol Swabs (Alcohol Prep Pads) 70 % Pad PAD .XX DIRECTED for Aseptic process, #1 0 Refills Blood Glucose Test Strips (Blood Glucose Test Strips) Strips Strip EA .XX DIRECTED for Blood Sugar Management, #1 0 Refills Blood-Glucose Meter (Blood Glucose Meter) 1 Each Each DROP, #1 Ciprofloxacin (Ciprofloxacin) 500 Mg Tab 500 MG PO BID for Infection, #56 TAB 0 Refills Doxycycline Hyclate (Doxycycline Hyclate) 100 Mg Cap 100 MG PO BID for Infection, #56 CAP 0 Refills Insulin Human NPH Inj (Novolin N Inj) 1,000 Unit/10 Ml Vial 1 UNITS SQ DIRECTED for Blood Sugar Management, #10 ML 0 Refills 40 units every AM 25 units every PM Insulin Human Regular Inj (Novolin R Inj) 1,000 Unit/10 Ml Vial 6 UNITS SQ TIDAC for Blood Sugar Management, #1 INJECTION 0 Refills Insulin Pen Needle (Pen [place] 29GX1/2" 29G X 12Mm) 29 Gauge X 1/2" Mis EA .XX DIRECTED for Blood Sugar Management, #1 0 Refills Insulin [place] for subcutaneous injections Lactobacillus Acidophilus (Lactobacillus Acidophilus) 1 Billion Cell Tab 1 TAB PO TIDAC for Nutritional Supplement, #90 TAB 0 Refills Lancets (Lancets) 1 Mis Mis EA .XX DIRECTED for Blood Sugar Management, #1 0 Refills Continued Medications: Naltrexone Inj (Vivitrol Inj) 380 Mg Inj 380 MG IM Q28D, #1 VIAL 0 Refills Milo Goode MD Dec 20, 2017 10:39
[2017-12-20] MEDS ORDERED: needles (12:02)
[2017-12-20] MEDS ORDERED: PHARMACY ORDERED LAB ONE (21:45)
== END 2017-12-20 12:50 | disposition home or self-care (01) | DRG 540 ==
LOC: PHED 16:16 → PHEDA 19:17 → PH3A 20:46
PROVIDERS: ADMIT Hospitalist; ATTEND Hospitalist
DX: M86.111 Other acute osteomyelitis, right shoulder (principal); L02.213 Cutaneous abscess of chest wall; M00.811 Arthritis due to other bacteria, right shoulder; E10.69 Type 1 diabetes mellitus with other specified complication; E10.65 Type 1 diabetes mellitus with hyperglycemia; B19.20 Unspecified viral hepatitis C without hepatic coma; E86.0 Dehydration; R60.0 Localized edema; M25.511 Pain in right shoulder; F17.210 Nicotine dependence, cigarettes, uncomplicated; F11.90 Opioid use, unspecified, uncomplicated; F19.10 Other psychoactive substance abuse, uncomplicated; E87.6 Hypokalemia
CPT/HCPCS: 71046; 71260; 73223; 76999; 80048; 80053; 80202; 81001; 82010; 82550; 82552; 82565; 82805; 82948; 83036; 83605; 83735; 84100; 84484; 85025; 85610; 85652; 85730; 86140; 87015; 87040; 96361; 96365; A9579; J0692; J0696; J1650; J1815; J3370; J3480; J7030; J7040; J7050; Q9967

== ENCOUNTER 2018-10-13 20:15 | Inpatient (IN) ==
--- NOTE | 2018-10-13 21:58 | ED ---
HPI General Chief Complaint: Overdose Stated Complaint: Poss OD Time Seen by Provider: 10/13/18 21:44 Source: patient and EMS Mode of arrival: EMS Limitations: no limitations History of Present Illness HPI Narrative: 38-year-old male was brought in by EMS after heroin overdose. Patient states that he has history of heroin abuse for the past few years. Patient was shooting up heroine this afternoon. Patient's girlfriend came home and found the patient on the floor being drowsy. Patient girlfriend found the patient in bed late on and not breathing. Chest compressions started by patient 's girlfriend. Patient was given Narcan nasally by girlfriend. EMS was called. Patient was given Narcan 0.4 mg IM with good success. Patient was transferred to the ED for evaluation. Patient complains of sharp pain around the sternum area. Patient denies any headache. Patient denies any neck pain. Patient denies any abdominal pain. Patient denies any nausea vomiting. Patient complains of pins and needle sensation posterior right calf area. Patient denies any focal weakness or numbness of the extremity. MD complaint: Reports accidental overdose Onset (ago): hour(s) Timing confirmed by: other (Patient's girlfriend) How Overdose Was Discovered: family/friend present at time Context: Accidental Overdose: wanted to get high Treatments Prior to Arrival: narcan Related Data Home Medications Medication Instructions Recorded Confirmed No Known Home Medications 10/13/18 10/13/18 Allergies Allergy/AdvReac Type Severity Reaction Status Date / Time No Known Allergies Allergy Unknown Uncoded 12/09/17 18:41 Review of Systems ROS: all other systems reviewed are negative [facility] Medical History Medical History IV drug abuse (Acute) Patient denies medical problems (Acute) Surgical History Surgical History No history of previous surgery (Acute) Social History Social History Substance History: No History of Abuse Second Hand Smoke Exposure: No Smoking Status: Never smoker Tobacco Type: Cigarettes How Often Do You Have a Drink Containing Alcohol: Never Recent Travel in [facility] within the Last 8 Weeks: No Recent Out of Country Travel within the Last 8 Weeks: No Immunization History Tetanus Immunization: <5 Years Exam Narrative Exam Narrative: GENERAL: Well-nourished, well-developed patient. SKIN: Focused skin assessment warm/dry. HEAD: Normocephalic. EYES: No scleral icterus. No injection or drainage. NECK: Supple, trachea midline. No JVD or lymphadenopathy. CARDIOVASCULAR: Regular rate and rhythm without murmurs, gallops, or rubs. RESPIRATORY: Breath sounds equal bilaterally. No accessory muscle use. GASTROINTESTINAL: Abdomen soft, non-tender, nondistended. MUSCULOSKELETAL: Patient has moderate tenderness on palpation anterior chest wall sternal area. No crepitus no deformity noted. Breath sounds equal bilaterally. BACK: Nontender without obvious deformity. No CVA tenderness. Neurologic exam: Patient is awake and alert oriented x3. Patient moves all extremities well. No obvious focal logical deficit. Course Initial Documented Vital Signs Temperature 98.2 F 10/13/18 20:27 Pulse Rate 100 H 10/13/18 20:27 Respiratory Rate 18 10/13/18 20:27 Blood Pressure 146/92 H 10/13/18 20:27 Pulse Oximetry 100 10/13/18 20:27 Last Documented Vital Signs Temperature 98.2 F 10/13/18 20:27 Pulse Rate 93 H 10/13/18 21:18 Respiratory Rate 14 10/13/18 21:18 Blood Pressure 123/81 10/13/18 21:18 Pulse Oximetry 98 10/13/18 21:18 Medical Decision Making MDM Narrative Medical decision making narrative: 38-year-old male with chest pain and heroin overdose. Patient was given Narcan and chest compression prior to arrival. EKG shows sinus rhythm nonspecific ST-T wave change. Troponin 0 0.12. I spoke with Dr. Walker, scanning supervisor clearing distribution clerk. Advised observation with serial EKG and cardiac enzymes. Medical Screen Exam Complete: Yes Emergency Medical Condition: Yes Differential Diagnosis Differential Diagnosis: Differential diagnosis including chest wall contusion, fractured rib, hemopneumothorax, heroin overdose. Lab Data Lab results reviewed: Yes I reviewed the patient's lab results. Result diagrams: 10/13/18 22:00 10/13/18 22:00 Lab Results 10/13/18 10/13/18 Range/Units 22:00 22:00 WBC 15.3 H (4.0-11.0) th/mm3 RBC 4.46 L (4.50-5.90) mil/mm3 Hgb 13.8 (13.0-17.0) gm/dL Hct 39.8 (39.0-51.0) % MCV 89.2 (80.0-100.0) fL MCH 30.9 (27.0-34.0) pg MCHC 34.6 (32.0-36.0) % RDW 13.4 (11.6-17.2) % Plt Count 250 (150-450) th/mm3 MPV 6.5 L (7.0-11.0) fL Neut % (Auto) 84.8 H (16.0-70.0) % Lymph % (Auto) 7.5 L (9.0-44.0) % [place] % (Auto) 7.6 (0.0-8.0) % Eos % (Auto) 0.0 (0.0-4.0) % Baso % (Auto) 0.1 (0.0-2.0) % Neut # (Auto) 13.0 H (1.8-7.7) th/mm3 Lymph # (Auto) 1.1 (1.0-4.8) th/mm3 [place] # (Auto) 1.2 H (0.0-0.9) th/mm3 Eos # (Auto) 0.0 (0.0-0.4) th/mm3 Baso # (Auto) 0.0 (0.0-0.2) th/mm3 WBC Differential . Differential Comment Auto diff final Sodium 136 (136-145) meq/L Potassium 4.6 (3.5-5.1) meq/L Chloride 102 (98-107) meq/L Carbon Dioxide 27.3 (21.0-32.0) meq/L Anion Gap 7 (5-15) meq/L BUN 15 (7-18) mg/dL Creatinine 1.05 (0.60-1.30) mg/dL Estimated GFR 79 L (>89) mL/min Random Glucose 84 (74-106) mg/dL Calcium 8.7 (8.5-10.1) mg/dL Total Bilirubin 0.2 (0.2-1.0) mg/dL AST 24 (15-37) U/L ALT 18 (12-78) U/L Alkaline Phosphatase 82 (45-117) U/L Troponin I 0.12 H (0.02-0.05) ng/mL Total Protein 7.2 (6.4-8.2) g/dL Albumin 3.3 L (3.4-5.0) g/dL Imaging Data Attestation: I personally reviewed and interpreted this imaging study as follows : Radiologist's impression: Chest X-Ray 10/13/18 21:50 CONCLUSION: No active disease. Discharge Plan Discharge Disposition Patient Disposition: ED Admit(ED Internal Use Only) Discharge Details Diagnosis: Heroin overdose, Elevated troponin Physicians Team ED Provider: Alfred Marr Primary Care Provider: Primary Care Manishi,No Rxs /Orders / Referrals /Forms Prescriptions: No Action No Known Home Medications RF: 0 Discharge Interventions Interventions: Vital Signs Last Done: 10/13/18 21:18 Status ED Status: With Doctor
--- NOTE | 2018-10-13 22:28 | XR ---
EXAM DATE: 10/13/2018 10:11 PM EST AGE/SEX: 38 years / Male INDICATIONS: . Chest pain. Possible overdose. CLINICAL DATA: This is the patient's initial encounter. Patient reports that signs and symptoms have been present for 1 day and indicates a pain score of 0/10. MEDICAL/SURGICAL HISTORY: None. None. COMPARISON: [facility], CHEST PA & LAT, 12/09/2017. . FINDINGS: PA and lateral views of the chest demonstrate the lungs to be symmetrically aerated without evidence of mass, infiltrate or effusion. The cardiomediastinal contours are unremarkable. Osseous structures are intact. CONCLUSION: No active disease. Electronically signed by: Isidoro Chinchilla MD Board Certified Radiologist 10/13/2018 10:27 PM EST
[2018-10-13 22:39] LABS: Baso % (Auto) 0.1 % (0.0-2.0); Hematocrit 39.8 % (39.0-51.0); Hemoglobin 13.8 gm/dL (13.0-17.0); Lymph # (Auto) 1.1 th/mm3 (1.0-4.8); Lymph % (Auto) 7.5 % (9.0-44.0); Mean Corpuscular HGB Conc 34.6 % (32.0-36.0); Mean Corpuscular Hemoglobin 30.9 pg (27.0-34.0); Mean Corpuscular Volume 89.2 fL (80.0-100.0); Mean Platelet Volume 6.5 fL (7.0-11.0); Mono # (Auto) 1.2 th/mm3 (0.0-0.9); Mono % (Auto) 7.6 % (0.0-8.0); Neut % (Auto) 84.8 % (16.0-70.0); Platelet Count 250 th/mm3 (150-450); Red Blood Count 4.46 mil/mm3 (4.50-5.90); Red Cell Distribution Width 13.4 % (11.6-17.2); White Blood Count 15.3 th/mm3 (4.0-11.0)
[2018-10-13 23:06] LABS: Albumin 3.3 g/dL (3.4-5.0); Anion Gap 7 meq/L (5-15); Aspartate Aminotransferase 24 U/L (15-37); Blood Urea Nitrogen 15 mg/dL (7-18); Calcium 8.7 mg/dL (8.5-10.1); Carbon Dioxide 27.3 meq/L (21.0-32.0); Chloride 102 meq/L (98-107); Glomerular Filtration Rate 79 mL/min (>89); Glucose,Random 84 mg/dL (74-106); Potassium 4.6 meq/L (3.5-5.1); Sodium 136 meq/L (136-145)
[2018-10-13 23:07] LABS: Alanine Aminotransferase 18 U/L (12-78)
[2018-10-13 23:11] LABS: Alkaline Phosphatase 82 U/L (45-117); Total Protein 7.2 g/dL (6.4-8.2); Troponin I 0.12 ng/mL (0.02-0.05)
[2018-10-14] MEDS ORDERED: Acetaminophen 325 MG Tablet PO PRN (00:35)
--- NOTE | 2018-10-14 02:51 | P.HPIM ---
History of Present Illness Primary Care Physician: No Primary Care Physician CC: overdosed on heroine HPI: History from patient, ER physician communication, and review of medical records. Patient reported that yesterday, around 4 PM, he injected himself with heroin which might also have fentanyl. He believes his girlfriend came home around 6 PM. Per report, the girlfriend found him unresponsive and not breathing. She therefore administered Narcan to him nasally. She also performed CPR on him. There was no objective evidence to say whether he had lost pulse. Girlfriend is not at the bedside. However patient stated that he believes she performed CPR for about 10 minutes. Per report, patient was awake alert and oriented by the time EMS arrived. However patient states he is not sure. He believes EMS may have given him another dose of Narcan. While in ER, patient is entirely awake alert and oriented. However his workup revealed elevated troponin for which ER physician had discussed with combat rifle crewmember on-call who advised for overnight observation. Patient denies any recent fever/nausea/vomiting/cough. Denies any urinary burning or pain on urination or good urination. Denies any hematemesis/hematochezia/melena/hematuria. Denies any seizures. Reports of diarrhea for about 1-2-day. However states that it is resolved now. Denies any chest pain/palpitations/shortness of breath/focal weakness. Past medical history: Diabetes. Was diagnosed only last year. Hypertension. 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 Past surgical history: Denies any prior history of surgeries. Social History: No smoking/alcohol abuse/drug abuse. Family history: Father had coronary artery disease. Further in his late 90s. Social history: Lives by himself. Denies smoking/alcohol abuse. Admits to IV drug abuse. Drug of choice is heroin. Review of Systems Review of Systems: all other systems reviewed are negative [facility] Medical History Medical History IV drug abuse (Acute) Patient denies medical problems (Acute) Surgical History Surgical History No history of previous surgery (Acute) Social History Social History Substance History: No History of Abuse Second Hand Smoke Exposure: No Smoking Status: Never smoker Tobacco Type: Cigarettes How Often Do You Have a Drink Containing Alcohol: Never Recent Travel in [facility] [[email or web address]] within the Last 8 Weeks: No Recent Out of Country Travel within the Last 8 Weeks: No Immunization History Tetanus Immunization: <5 Years Medications and Allergies Allergies Allergy/AdvReac Type Severity Reaction Status Date / Time No Known Allergies Allergy Unknown Uncoded 12/09/17 18:41 Home Medications Medication Instructions Recorded Confirmed Type No Known Home Medications 10/13/18 10/13/18 History Active Medications: Active Medications Acetaminophen (Tylenol) 650 mg PO Q4H PRN PRN Reason: Temp > 100.4 Enoxaparin Sodium (Lovenox Inj) 40 mg SQ Q24H SEB Ondansetron HCl (Zofran Inj) 4 mg IV.PUSH Q6H PRN PRN Reason: NAUSEA OR VOMITING Sodium Chloride (Ns Flush) 2 ml IV.FLUSH BID SEB Sodium Chloride (Ns Flush) 2 ml IV.FLUSH PRN PRN PRN Reason: FLUSH AFTER USING IV ACCESS Physical Exam Vital signs: Last Vital Signs Temp 98.2 F 10/13/18 20:27 Pulse 80 10/14/18 01:00 Resp 14 10/14/18 01:00 BP 120/67 10/14/18 01:00 Pulse Ox 99 10/14/18 01:00 Intake & Output 10/11/18 10/12/18 10/13/18 10/14/18 06:59 06:59 06:59 06:59 Intake Total 240 / 240 Balance 240 / 240 Weight 81.647 kg Narrative: GENERAL: This is thin gentleman, well-developed patient, in no apparent distress. CARDIOVASCULAR: Regular rate and rhythm without murmurs, gallops, or rubs. RESPIRATORY: Clear to auscultation. Breath sounds equal bilaterally. No wheezes , rales, or rhonchi. GASTROINTESTINAL: Abdomen soft, non-tender, nondistended. Normal active bowel sounds MUSCULOSKELETAL: Extremities without clubbing, cyanosis, or edema. NEURO: Alert & Oriented x4 to person, place, time, situation. Moves all ext x4 Results Labs CBC & Chem 7: 10/13/18 22:00 10/13/18 22:00 Imaging Impressions Chest X-Ray 10/13/18 21:50 CONCLUSION: No active disease. Caprini VTE Risk Assessment Caprini VTE Risk Assessment: Moderate/High Risk (score >= 2) Caprini Risk Assessment Model: Point Value = 1 Point Value = 2 Point Value = 3 Point Value = 5 Age 41-60 Minor surgery BMI > 25 kg/m2 Swollen legs Varicose veins or History of unexplained or recurrent spontaneous Oral contraceptives or hormone replacement Sepsis (< 1 month) Serious lung disease, including pneumonia (< 1 month) Abnormal pulmonary function Acute myocardial infarction Congestive heart failure (< 1 month) History of inflammatory bowel disease Medical patient at bed rest Age 61-74 Arthroscopic surgery Major open surgery (> 45 min) Laparoscopic surgery (> 45 min) Malignancy Confined to bed (> 72 hours) Immobilizing plaster cast Central venous access Age >= 75 History of VTE Family history of VTE Factor V Leiden Prothrombin [id number] Lupus anticoagulant Anticardiolipin antibodies Elevated serum homocysteine Heparin-induced thrombocytopenia Other congenital or acquired thrombophilia Stroke (< 1 month) Elective arthroplasty Hip, pelvis, or leg fracture Acute spinal cord injury (< 1 month) Prophylaxis Regimen: Total Risk Factor Score Risk Level Prophylaxis Regimen 0-1 Low Early ambulation 2 Moderate Order ONE of the following: *Sequential Compression Device (SCD) *Heparin 5000 units SQ BID 3-4 Higher Order ONE of the following medications: *Heparin 5000 units SQ TID *Enoxaparin/Lovenox 40 mg SQ daily (WT < 150 kg, CrCl > 30 mL/min) *Enoxaparin/Lovenox 30 mg SQ daily (WT < 150 kg, CrCl > 10-29 mL/min) *Enoxaparin/Lovenox 30 mg SQ BID (WT < 150 kg, CrCl > 30 mL/min) AND/OR *Sequential Compression Device (SCD) 5 or more Highest Order ONE of the following medications: *Heparin 5000 units SQ TID (Preferred with Epidurals) *Enoxaparin/Lovenox 40 mg SQ daily (WT < 150 kg, CrCl > 30 mL/min) *Enoxaparin/Lovenox 30 mg SQ daily (WT < 150 kg, CrCl > 10-29 mL/min) *Enoxaparin/Lovenox 30 mg SQ BID (WT < 150 kg, CrCl > 30 mL/min) AND *Sequential Compression Device (SCD) Assessment and Plan Plan Impression: Drug overdose with heroin possibly with fentanyl Out of hospital CPR by girlfriend Elevated troponin. Likely secondary to CPR. Leukocytosis. Likely secondary to stress response. Diabetes. Was diagnosed only last year. Hypertension. 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 Plan: Patient is entirely awake alert and oriented now. We will trend troponin. I do not believe this is ACS. Cardiology was consulted by ER. Will follow recommendations. We will follow CBC. IV hydration with normal saline at 100 cc/h. resume home meds monitor fingersticks DVT prophylaxis with SCD. code status- full code, discussed with patient
--- NOTE | 2018-10-14 10:07 | MB ---
cc: Laith Monge MD DATE: 10/14/2018 REASON FOR CONSULTATION: Elevated troponin. HISTORY OF PRESENT ILLNESS: The patient is a very pleasant 38-year-old gentleman who has a history of IV heroin abuse. He overdosed yesterday and his girlfriend administered CPR, which did arouse the patient. He was brought to the hospital and is now asymptomatic, resting comfortably in bed. As part of the initial workup, troponins were drawn, which were mildly elevated. The patient complained of some soreness in his central chest where CPR was administered, but is otherwise asymptomatic. He has no personal cardiac history. Denies shortness of breath, lightheadedness, dizziness. PAST MEDICAL HISTORY: IV drug abuse. CURRENT MEDICATIONS: None. PHYSICAL EXAMINATION: VITAL SIGNS: Afebrile, respiratory rate 16, pulse 75, BP 118/57, saturating 99% on room air. GENERAL: Pleasant young gentleman in no distress. NECK: No JVD. LUNGS: Clear to auscultation bilaterally. CARDIOVASCULAR: Regular rate and rhythm. No murmurs appreciated. ABDOMEN: Benign. EXTREMITIES: No edema. LABORATORY DATA: White count 15.3, hematocrit 39.8, platelets 250,000. Sodium 136, potassium 4.6, chloride 102, bicarbonate 27.3, BUN 15, creatinine 1.05, glucose 79. Troponins are 0.12, 0.14. EKG shows sinus rhythm without any acute ST or T-wave changes. IMPRESSION: Elevated troponin. The patient's elevated troponin is very nonspecific in this setting. His chest pain is clearly from his CPR. I will have him undergo a nuclear stress test and if nonischemic he can be discharged home at that time. Thank you again for the opportunity to participate in this patient's care. MD ED Brady/ana rosa , 09:45 AM , 09:50 AM
[2018-10-14] MEDS: Enoxaparin Inj 40 MG/0.4 ML Syringe SQ SCH (10:15)
[2018-10-14] MEDS ORDERED: Regadenoson Inj 0.4 MG/5 ML Syringe IV.PUSH ONE (10:45)
[2018-10-14] MEDS ORDERED: Influenza (Quadrivalent) Vaccine 0.5 ML Syringe IM ONE (11:15)
--- NOTE | 2018-10-14 15:08 | ECHRPT ---
Indication: htn CONCLUSIONS Normal left ventricular size. Wall thickness is normal. The left ventricular systolic function is normal with an estimated ejection fraction in the range of 60-65%. Trace mitral valve regurgitation. The estimated pulmonary arterial pressure is 28 mmHg. There is trace tricuspid valve regurgitation. BP: / HR: Rhythm: MEASUREMENTS (Male / Female) Normal Values Technical Quality: 2D ECHO LV Diastolic Diameter PLAX 4.7 cm 4.2 - 5.9 / 3.9 - 5.3 cm LV Systolic Diameter PLAX 3.3 cm IVS Diastolic Thickness 0.8 cm 0.6 - 1.0 / 0.6 - 0.9 cm LVPW Diastolic Thickness 0.9 cm 0.6 - 1.0 / 0.6 - 0.9 cm LV Relative Wall Thickness 0.4 RV Internal Dim ED PLAX 1.8 cm LVOT Diameter 2.1 cm Aortic Root Diameter 3.0 cm LA Systolic Diameter LX 2.8 cm 3.0 - 4.0 / 2.7 - 3.8 cm M-MODE Aortic Root Diameter MM 3.2 cm LA Systolic Diameter MM 3.2 cm LA Ao Ratio MM 1.0 AV Cusp Separation MM 0.6 cm DOPPLER AV Peak Velocity 111.0 cm/s AV Peak Gradient 4.9 mmHg LVOT Peak Velocity 78.0 cm/s LVOT Peak Gradient 2.4 mmHg AV Area Cont Eq pk 2.4 cm Mitral E Point Velocity 75.0 cm/s Mitral A Point Velocity 48.4 cm/s Mitral E to A Ratio 1.5 LV E' Lateral Velocity 16.9 cm/s Mitral E to LV E' Lateral Ratio 4.4 LV E' Septal Velocity 11.6 cm/s Mitral E to LV E' Septal Ratio 6.5 TR Peak Velocity 213.0 cm/s TR Peak Gradient 18.1 mmHg Right Atrial Pressure 10.0 mmHg Pulmonary Artery Systolic Pressu 28.1 mmHg Right Ventricular Systolic Press 28.1 mmHg PV Peak Velocity 99.1 cm/s PV Peak Gradient 3.9 mmHg FINDINGS LEFT VENTRICLE Normal left ventricular size. Wall thickness is normal. The left ventricular systolic function is normal with an estimated ejection fraction in the range of 60-65%. RIGHT VENTRICLE Normal right ventricular size and systolic function. LEFT ATRIUM The left atrial size is normal. RIGHT ATRIUM The right atrial size is normal. ATRIAL SEPTUM Normal atrial septal thickness without atrial level shunting by limited color doppler interrogation. AORTA The aortic root and proximal ascending aorta are normal in size on limited imaging. MITRAL VALVE Trace mitral valve regurgitation. AORTIC VALVE Trileaflet aortic valve. No aortic valve stenosis or regurgitation. TRICUSPID VALVE The estimated pulmonary arterial pressure is 28 mmHg. There is trace tricuspid valve regurgitation. PULMONARY VALVE No pulmonary valve regurgitation or stenosis. VESSELS The inferior vena cava is normal in size. PERICARDIUM No pericardial effusion. Laith Monge MD (Electronically Signed) Final Date:14 October 2018 15:07
[2018-10-14] MEDS ORDERED: LORazepam 1 MG Tablet PO PRN (15:31)
[2018-10-14] MEDS ORDERED: Haloperidol Inj 5 MG/ML Ampul IV.PUSH PRN (15:31)
--- NOTE | 2018-10-14 15:31 | P.PNIM ---
Subjective Interval history: CC: overdosed on heroine HPI: History from patient, ER physician communication, and review of medical records. Patient reported that yesterday, around 4 PM, he injected himself with heroin which might also have fentanyl. He believes his girlfriend came home around 6 PM. Per report, the girlfriend found him unresponsive and not breathing. She therefore administered Narcan to him nasally. She also performed CPR on him. There was no objective evidence to say whether he had lost pulse. Girlfriend is not at the bedside. However patient stated that he believes she performed CPR for about 10 minutes. Per report, patient was awake alert and oriented by the time EMS arrived. However patient states he is not sure. He believes EMS may have given him another dose of Narcan. While in ER, patient is entirely awake alert and oriented. However his workup revealed elevated troponin for which ER physician had discussed with head of visual merchandising on-call who advised for overnight observation. Patient denies any recent fever/nausea/vomiting/cough. Denies any urinary burning or pain on urination or good urination. Denies any hematemesis/hematochezia/melena/hematuria. Denies any seizures. Reports of diarrhea for about 1-2-day. However states that it is resolved now. Denies any chest pain/palpitations/shortness of breath/focal weakness. 1-5 IS A DM NEEDS SLIDING SCALE COVERAGE POSITIVE TROPONINS EF OF 65% TO HAVE STRESS TEST TOMORROW FOLLOW UP WITH CARDIOLOGY TERRY REED GET WITHDRAWALS AM LABS Physical Exam Vital signs: Vital Signs 10/13/18 20:27 10/13/18 21:18 10/14/18 00:48 Temperature 98.2 F Pulse Rate 100 H 93 H 81 Respiratory Rate 18 14 14 Blood Pressure 146/92 H 123/81 120/67 Pulse Oximetry 100 98 99 10/14/18 01:00 10/14/18 05:24 10/14/18 07:00 Temperature Pulse Rate 80 75 Respiratory Rate 14 14 16 Blood Pressure 120/67 118/57 L Pulse Oximetry 99 99 10/14/18 08:00 10/14/18 09:00 10/14/18 10:00 Temperature 97.5 F L Pulse Rate 70 70 80 Respiratory Rate 16 Blood Pressure 123/59 L Pulse Oximetry 97 10/14/18 11:00 10/14/18 12:00 10/14/18 12:26 Temperature 97.7 F Pulse Rate 82 72 80 Respiratory Rate 16 Blood Pressure 130/86 Pulse Oximetry 97 Intake & Output 10/13/18 10/14/18 10/14/18 18:59 06:59 18:59 Intake Total 240 / 240 Balance 240 / 240 Weight 81.647 kg 63.503 kg Intake: Oral 240 / 240 Other: # Voids 2 Date of Last Bowel Movement 10/13/18 Weight On Admission 141 kg Narrative: GENERAL: Awake alert and oriented x3 talkative and cooperative SKIN: Warm and dry. HEAD: Atraumatic. Normocephalic. EYES: Pupils equal and round. No scleral icterus. No injection or drainage. EOMI Oral mucosa is moist tongue is midline ENT: No nasal bleeding or discharge. Mucous membranes pink and moist. NECK: Trachea midline. No JVD. CARDIOVASCULAR: Regular rate and rhythm. S1-S2 no S3 or S4 RESPIRATORY: No accessory muscle use. Clear to auscultation. Breath sounds equal bilaterally. GASTROINTESTINAL: Abdomen soft, non-tender, nondistended. Hepatic and splenic margins not palpable. MUSCULOSKELETAL: Extremities without clubbing, cyanosis, or edema. No obvious deformities. NEUROLOGICAL: Awake and alert. No obvious cranial nerve deficits. Motor grossly within normal limits. Five out of 5 muscle strength in the arms and legs. Normal speech. PSYCHIATRIC: Appropriate mood and affect; insight and judgment normal. Results - Labs CBC & Chem 7: 10/13/18 22:00 10/13/18 22:00 Laboratory Results - last 24 hr 10/13/18 10/13/18 10/14/18 22:00 22:00 04:00 WBC 15.3 H RBC 4.46 L Hgb 13.8 Hct 39.8 MCV 89.2 MCH 30.9 MCHC 34.6 RDW 13.4 Plt Count 250 MPV 6.5 L Neut % (Auto) 84.8 H Lymph % (Auto) 7.5 L [place] % (Auto) 7.6 Eos % (Auto) 0.0 Baso % (Auto) 0.1 Neut # (Auto) 13.0 H Lymph # (Auto) 1.1 [place] # (Auto) 1.2 H Eos # (Auto) 0.0 Baso # (Auto) 0.0 WBC Differential . Differential Comment Auto diff final Sodium 136 Potassium 4.6 Chloride 102 Carbon Dioxide 27.3 Anion Gap 7 BUN 15 Creatinine 1.05 Estimated GFR 79 L Random Glucose 84 Calcium 8.7 Total Bilirubin 0.2 AST 24 ALT 18 Alkaline Phosphatase 82 Troponin I 0.12 H 0.14 H Total Protein 7.2 Albumin 3.3 L 10/14/18 10:23 WBC RBC Hgb Hct MCV MCH MCHC RDW Plt Count MPV Neut % (Auto) Lymph % (Auto) [place] % (Auto) Eos % (Auto) Baso % (Auto) Neut # (Auto) Lymph # (Auto) [place] # (Auto) Eos # (Auto) Baso # (Auto) WBC Differential Differential Comment Sodium Potassium Chloride Carbon Dioxide Anion Gap BUN Creatinine Estimated GFR Random Glucose Calcium Total Bilirubin AST ALT Alkaline Phosphatase Troponin I 0.09 H Total Protein Albumin - Imaging Impressions Chest X-Ray 10/13/18 21:50 CONCLUSION: No active disease. Assessment and Plan - Plan Impression: Drug overdose with heroin possibly with fentanyl Out of hospital CPR by girlfriend Elevated troponin. Likely secondary to CPR. Leukocytosis. Likely secondary to stress response. Diabetes. Was diagnosed only last year. Hypertension. 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 Plan: Patient is entirely awake alert and oriented now. We will trend troponin. I do not believe this is ACS. Cardiology was consulted by ER. Will follow recommendations. We will follow CBC. IV hydration with normal saline at 100 cc/h. resume home meds monitor fingersticks Accu-Cheks before meals and at bedtime Stress test tomorrow Echo showed an EF of 65% No active chest pain CIWA protocol in case goes through withdrawals DVT prophylaxis with SCD. Code Status: Full code Discussed Condition With: RN and patient and case management Discharge Planning: Hopefully discharge tomorrow after stress test is negative
[2018-10-14] MEDS ORDERED: Dextrose 50% in Water 50 ML Vial IV.PUSH PRN (15:34)
[2018-10-14] MEDS: Multivitamin/Minerals Therapeutic Tablet PO SCH (17:37)
[2018-10-14] MEDS: Folic Acid 1 MG Tablet PO SCH (17:37)
[2018-10-14] MEDS: Insulin NovoLOG Aspart Correctional Sugar Inj SQ SCH ×2 (17:37→20:33)
[2018-10-14 19:49] LABS: Amphetamine Screen,Urine Neg (Neg); Barbiturate Screen,Urine Neg (Neg); Cannabinoid Screen,Urine Neg (Neg); Cocaine Screen,Urine Neg (Neg)
[2018-10-14 19:53] LABS: Opiate Screen,Urine Neg (Neg)
--- NOTE | 2018-10-14 20:01 | ECG ---
Date Performed: 10/13/2018 Time Performed: 22:17:42 PTAGE: 38 years EKG: Sinus rhythm PROBABLE EARLY REPOLARIZATION WITHIN NORMAL LIMITS NORMAL ECG NO PREVIOUS TRACING DOCTOR: Gene Gray Interpretating Date/Time 10/14/2018 20:00:50
--- NOTE | 2018-10-14 20:02 | ECG ---
Date Performed: 10/14/2018 Time Performed: 04:14:50 PTAGE: 38 years EKG: Sinus rhythm PROBABLE EARLY REPOLARIZATION WITHIN NORMAL LIMITS Since the previous tracing, no significant change noted NORMAL ECG NO PREVIOUS TRACING DOCTOR: Gene Gray Interpretating Date/Time 10/14/2018 20:01:01
[2018-10-15] MEDS: Insulin NovoLOG Aspart Correctional Sugar Inj SQ SCH ×2 (07:27→12:30)
[2018-10-15 07:50] LABS: Baso % (Auto) 0.4 % (0.0-2.0); Eos # (Auto) 0.1 th/mm3 (0.0-0.4); Eos % (Auto) 1.2 % (0.0-4.0); Hematocrit 43.2 % (39.0-51.0); Hemoglobin 14.9 gm/dL (13.0-17.0); Lymph # (Auto) 2.3 th/mm3 (1.0-4.8); Lymph % (Auto) 37.3 % (9.0-44.0); Mean Corpuscular HGB Conc 34.5 % (32.0-36.0); Mean Corpuscular Hemoglobin 31.6 pg (27.0-34.0); Mean Corpuscular Volume 91.5 fL (80.0-100.0); Mean Platelet Volume 6.5 fL (7.0-11.0); Mono # (Auto) 0.4 th/mm3 (0.0-0.9); Mono % (Auto) 7.1 % (0.0-8.0); Neut # (Auto) 3.4 th/mm3 (1.8-7.7); Platelet Count 229 th/mm3 (150-450); Red Blood Count 4.72 mil/mm3 (4.50-5.90); Red Cell Distribution Width 13.2 % (11.6-17.2); White Blood Count 6.3 th/mm3 (4.0-11.0)
[2018-10-15 08:09] LABS: Albumin 3.1 g/dL (3.4-5.0); Anion Gap 7 meq/L (5-15); Aspartate Aminotransferase 20 U/L (15-37); Blood Urea Nitrogen 9 mg/dL (7-18); Calcium 8.3 mg/dL (8.5-10.1); Carbon Dioxide 25.5 meq/L (21.0-32.0); Chloride 108 meq/L (98-107); Cholesterol 165 mg/dL (120-200); Glomerular Filtration Rate Greater Than 89 mL/min (>89); Glucose,Random 136 mg/dL (74-106); Magnesium 1.9 mg/dL (1.5-2.5); Potassium 3.8 meq/L (3.5-5.1); Sodium 140 meq/L (136-145); Triglycerides 190 mg/dL (42-150)
[2018-10-15 08:17] LABS: Alanine Aminotransferase 21 U/L (12-78); Alkaline Phosphatase 73 U/L (45-117); Chol/HDL Ratio 3.92 Ratio; Free T4 (Free Thyroxine) 0.98 ng/dL (0.76-1.46); LDL Cholesterol,Calculated 85 mg/dL (0-99); Phosphorus 2.7 mg/dL (2.5-4.9); Thyroid Stimulating Hormone 0.336 uIU/mL (0.358-3.740); Total Protein 7.2 g/dL (6.4-8.2)
--- NOTE | 2018-10-15 09:13 | P.PNIM ---
Subjective Interval history: Follow-up for heroin overdose, elevated troponins. Patient is currently doing well. He reports significant improvement of his chest discomfort. Denies any shortness of breath, fever or chills. He is waiting for nuclear stress test ordered by cardiology. Physical Exam Vital signs: Last Vital Signs Temp 98.2 F 10/14/18 20:00 Pulse 77 10/15/18 07:00 Resp 16 10/15/18 04:12 BP 118/70 10/15/18 04:12 Pulse Ox 97 10/15/18 04:12 Intake & Output 10/13/18 10/14/18 10/15/18 10/16/18 06:59 06:59 06:59 06:59 Intake Total 240 / 240 480 / 480 Balance 240 / 240 480 / 480 Weight 81.647 kg 65.5 kg Narrative: GENERAL: Alert, NAD. SKIN: Warm and dry. HEAD: Normocephalic. EYES: No scleral icterus. No injection or drainage. NECK: Supple, trachea midline. No JVD or lymphadenopathy. CARDIOVASCULAR: Regular rate and rhythm without murmurs, gallops, or rubs. RESPIRATORY: Breath sounds equal bilaterally. No accessory muscle use. GASTROINTESTINAL: Abdomen soft, non-tender, nondistended. MUSCULOSKELETAL: No cyanosis, or edema. Mild tenderness to palpation over midsternal area. BACK: Nontender without obvious deformity. No CVA tenderness. Results Labs CBC & Chem 7: 10/15/18 06:40 10/15/18 06:40 Assessment and Plan Plan Mr. Booth is a pleasant 38-year-old male with no significant medical history who presented to the emergency department on 10/14/2018 after he overdosed on heroine. He has been doing heroin for many years although recently has slowed down the use of IV heroin. After he overdosed, his girlfriend performed CPR. Patient was subsequently brought to the emergency department. His troponins were elevated and cardiology was consulted. Acute IV heroine overdose Patient is counseled regarding substance abuse. He verbalized understanding. Clonidine as needed for withdrawal symptoms. Elevated troponins Unlikely related to acute coronary syndrome. Cardiology input appreciated. Nuclear stress test pending this morning. If negative, patient can be discharged later today. Full code. Ambulation. Progress Note: Quality VTE Deep Vein Thrombosis/Pulmonary Embolism Present on Admission: No
[2018-10-15] MEDS: Enoxaparin Inj 40 MG/0.4 ML Syringe SQ SCH (09:14)
[2018-10-15] MEDS: Folic Acid 1 MG Tablet PO SCH (09:14)
[2018-10-15] MEDS: Multivitamin/Minerals Therapeutic Tablet PO SCH (09:14)
--- NOTE | 2018-10-15 11:06 | P.PNCA ---
Subjective Interval history: Feels anxious, no cardiac complaints. Medications and Allergies Active Medications: Active Medications Acetaminophen (Tylenol) 650 mg PO Q4H PRN PRN Reason: Temp > 100.4 Clonidine HCl (Catapres) 0.1 mg PO Q6H PRN PRN Reason: Hypertension, drug withdrawal Dextrose (D50w Vial) 50 ml IV.PUSH UNSCH PRN PRN Reason: PER HYPOGLYCEMIA PROTOCOL Enoxaparin Sodium (Lovenox Inj) 40 mg SQ Q24H [facility] Last Admin: 10/15/18 09:14 Dose: 40 mg Flumazenil (Romazicon Inj) 0.2 mg IV.PUSH Q1M PRN PRN Reason: OVERSEDATION Folic Acid (Folic Acid) 1 mg PO DAILY [facility] Stop: 10/19/18 15:44 Last Admin: 10/15/18 09:14 Dose: 1 mg Glucagon (Glucagon Inj) 1 mg OTHER PRN PRN PRN Reason: for Hypoglycemia Protocol Haloperidol Lactate (Haldol Inj) 1 mg IV.PUSH Q15M PRN PRN Reason: for severe agitation Insulin Aspart (Novolog Insulin Correctional Sugar Inj) 0 unit SQ [facility]; Protocol Last Admin: 10/15/18 07:27 Dose: Not Given Lorazepam (Ativan) 1 mg PO Q4H PRN PRN Reason: for CIWA 8-10 Last Admin: 10/15/18 10:54 Dose: 1 mg Lorazepam (Ativan) 2 mg PO Q2H PRN PRN Reason: for CIWA 11-14 Lorazepam (Ativan Inj) 2 mg IV.PUSH Q2H PRN PRN Reason: for CIWA 11-14 Lorazepam (Ativan Inj) 2 mg IV.PUSH Q1H PRN PRN Reason: for CIWA 15-20 Lorazepam (Ativan Inj) 2 mg IV.PUSH Q15M PRN PRN Reason: for CIWA > 20 Lorazepam (Ativan Inj) 1 mg IV.PUSH Q4H PRN PRN Reason: for CIWA 8-10 Multivitamins/Minerals (Theragran-M) 1 tab PO DAILY [facility] Stop: 10/19/18 15:44 Last Admin: 10/15/18 09:14 Dose: 1 tab Ondansetron HCl (Zofran Inj) 4 mg IV.PUSH Q6H PRN PRN Reason: NAUSEA OR VOMITING Pantoprazole Sodium (Protonix) 40 mg PO DAILY [facility] Last Admin: 10/15/18 09:14 Dose: 40 mg Sodium Chloride (Ns Flush) 2 ml IV.FLUSH BID [facility] Last Admin: 10/15/18 09:17 Dose: 2 ml Sodium Chloride (Ns Flush) 2 ml IV.FLUSH PRN PRN PRN Reason: FLUSH AFTER USING IV ACCESS Thiamine HCl (Vitamin B1) 100 mg PO DAILY [facility] Last Admin: 10/15/18 09:14 Dose: 100 mg Allergies Allergy/AdvReac Type Severity Reaction Status Date / Time No Known Allergies Allergy Unknown Uncoded 12/09/17 18:41 Home Medications Medication Instructions Recorded Confirmed Type No Known Home Medications 10/13/18 10/13/18 History Physical Exam Vital signs: Vital Signs 10/14/18 12:00 10/14/18 12:26 10/14/18 17:32 Temperature 97.7 F 97.6 F Pulse Rate 72 80 78 Respiratory Rate 16 15 Blood Pressure 130/86 148/83 H Pulse Oximetry 97 97 10/14/18 19:00 10/14/18 20:00 10/14/18 21:45 Temperature 98.2 F Pulse Rate 70 79 74 Respiratory Rate 16 Blood Pressure 119/76 Pulse Oximetry 98 10/14/18 22:00 10/14/18 23:00 10/15/18 00:00 Temperature Pulse Rate 70 82 70 Respiratory Rate Blood Pressure Pulse Oximetry 10/15/18 00:02 10/15/18 01:00 10/15/18 02:00 Temperature Pulse Rate 69 68 70 Respiratory Rate 16 Blood Pressure 124/65 Pulse Oximetry 97 10/15/18 03:00 10/15/18 04:00 10/15/18 04:12 Temperature Pulse Rate 74 68 68 Respiratory Rate 16 Blood Pressure 118/70 Pulse Oximetry 97 10/15/18 05:00 10/15/18 06:00 10/15/18 07:00 Temperature Pulse Rate 70 70 77 Respiratory Rate Blood Pressure Pulse Oximetry 10/15/18 08:00 10/15/18 09:00 10/15/18 10:00 Temperature 98.1 F Pulse Rate 72 72 120 H Respiratory Rate 16 Blood Pressure 121/80 Pulse Oximetry 97 10/15/18 10:16 Temperature Pulse Rate 125 H Respiratory Rate 17 Blood Pressure 152/93 H Pulse Oximetry 93 L Intake & Output 10/14/18 10/15/18 10/15/18 18:59 06:59 18:59 Intake Total 480 / 480 Balance 480 / 480 Weight 63.503 kg 65.5 kg Intake: Oral 480 / 480 Other: # Voids 2 Date of Last Bowel Movement 10/13/18 10/13/18 Weight On Admission 141 kg - Constitutional no acute distress - Routine HEENT Exam Head: Present: normocephalic Eye: Present: EOMI ENT: Present: mucous membranes moist - Routine Neck Exam Absent: JVD - Routine Respiratory Exam Present: CTA bilaterally - Routine Cardiovascular Exam Present: RRR. Absent: murmur - Routine Abdominal Exam Present: soft - Routine Extremities Exam Absent: edema Results 10/15/18 06:40 10/15/18 06:40 Cardiac Enzymes 10/13/18 10/14/18 10/14/18 Range/Units 22:00 04:00 10:23 AST 24 (15-37) U/L Troponin I 0.12 H 0.14 H 0.09 H (0.02-0.05) ng/mL 10/15/18 Range/Units 06:40 AST 20 (15-37) U/L Troponin I (0.02-0.05) ng/mL Lipids 10/15/18 Range/Units 06:40 Triglycerides 190 H (42-150) mg/dL Cholesterol 165 (120-200) mg/dL HDL Cholesterol 42.0 (40.0-60.0) mg/dL Cholesterol/HDL Ratio 3.92 Ratio CBC 10/13/18 10/15/18 Range/Units 22:00 06:40 WBC 15.3 H 6.3 (4.0-11.0) th/mm3 RBC 4.46 L 4.72 (4.50-5.90) mil/mm3 Hgb 13.8 14.9 (13.0-17.0) gm/dL Hct 39.8 43.2 (39.0-51.0) % Plt Count 250 229 (150-450) th/mm3 Neut # (Auto) 13.0 H 3.4 (1.8-7.7) th/mm3 Lymph # (Auto) 1.1 2.3 (1.0-4.8) th/mm3 [place] # (Auto) 1.2 H 0.4 (0.0-0.9) th/mm3 Eos # (Auto) 0.0 0.1 (0.0-0.4) th/mm3 Baso # (Auto) 0.0 0.0 (0.0-0.2) th/mm3 Comprehensive Metabolic Panel 10/13/18 10/15/18 Range/Units 22:00 06:40 Sodium 136 140 (136-145) meq/L Potassium 4.6 3.8 D (3.5-5.1) meq/L Chloride 102 108 H (98-107) meq/L Carbon Dioxide 27.3 25.5 (21.0-32.0) meq/L BUN 15 9 (7-18) mg/dL Creatinine 1.05 0.90 (0.60-1.30) mg/dL Calcium 8.7 8.3 L (8.5-10.1) mg/dL AST 24 20 (15-37) U/L ALT 18 21 (12-78) U/L Alkaline Phosphatase 82 73 (45-117) U/L Total Protein 7.2 7.2 (6.4-8.2) g/dL Albumin 3.3 L 3.1 L (3.4-5.0) g/dL Intake and Output 10/14/18 10/15/18 10/15/18 22:59 06:59 14:59 Intake Total 480 / 480 Balance 480 / 480 Intake: Oral 480 / 480 Other: # Voids 2 Date of Last Bowel Movement 10/13/18 10/13/18 Weight 65.5 kg - Imaging and Cardiology Imaging: Impressions Chest X-Ray 10/13/18 21:50 CONCLUSION: No active disease. Assessment and Plan - Assessment (1) Elevated troponin Code(s): R74.8 - Abnormal levels of other serum enzymes Status: Acute Plan: likely due to LOC from heroin o/d; for nuc stress today; if negative ok to d/c (2) Heroin overdose Code(s): T40.1X1A - Poisoning by heroin, accidental (unintentional), initial encounter Status: Acute Plan: discussed at length, he plans on inpt rehab (2) Heroin overdose Qualifiers: Encounter type: initial encounter Injury intent: accidental or unintentional Qualified Code(s): T40.1X1A - Poisoning by heroin, accidental (unintentional) , initial encounter
[2018-10-15 12:30] VITALS: BP 132/81; RESP 16; TEMP 98.2; O2SAT 98
[2018-10-15 12:45] LABS: Hemoglobin A1c 5.7 % (4.3-6.0)
[2018-10-15] MEDS ORDERED: Regadenoson Inj 0.4 MG/5 ML Syringe IV.PUSH ONE (13:25)
--- NOTE | 2018-10-15 14:23 | NM ---
EXAM DATE: 10/15/2018 2:19 PM EST AGE/SEX: 38 years / Male INDICATIONS:Angina. . Abnormal troponin. CLINICAL DATA: This is the patient's initial encounter. Patient reports that signs and symptoms have been present for 1 day and indicates a pain score of 2/10. MEDICAL/SURGICAL HISTORY: None. None. COMPARISON: No prior exams available for comparison. DOSE: 8.3 mCi Tc 99m Myoview at rest 26.7 mCi [id number] at stress 0.4 mg Lexiscan STRESS SYMPTOMS: Lightheaded. EJECTION FRACTION: >70 % TECHNIQUE: The patient underwent pharmacologic stress with infusion of prescribed dose. Continuous ECG tracing was monitored during stress. Gated SPECT imaging was performed after stress and conventi onal SPECT imaging was performed at rest. The examination was performed on a SPECT/CT scanner, both attenuation and non-corrected datasets were reviewed. FINDINGS: Distribution: The maximum perfused segment at stress is in the anterior and septal wall. Perfusion Study: The pattern of perfusion at stress is within normal limits. The attenuation ketty ected portion of the study creates defects probably artifactually created. Gated Study: There are intact wall motion and wall thickening without hypokinetic or dyskinetic segm ents. The ejection fraction is calculated at >70%. RISK CATEGORY: Low (<1% Annual Mortality Rate) CONCLUSION: 1. Negative examination. Electronically signed by: Sandhya Franco MD Board Certified Radiologist 10/15/2018 2:22 PM EST
[2018-10-15 15:15] VITALS: PULSE 107
== END 2018-10-15 15:40 | disposition home or self-care (01) | DRG 918 ==
LOC: NEPD 20:15 → NEDA 20:15 → HCIS 10-14 07:00
PROVIDERS: ADMIT Hospitalist; ATTEND Hospitalist
CPT/HCPCS: 71020; 71046; 78452; 80053; 80061; 80307; 82948; 82962; 83036; 83735; 84100; 84439; 84443; 84484; 85025; 90658; 90686; 93005; 93017; 93306; 99285; A9502; J1650; J1815; J2785; Q2038